=== PATIENT | male | born 1935 | race Caucasian/White ===

== ENCOUNTER 2016-12-01 11:00 | Inpatient (IN) | payer OTHER ==
--- NOTE | 2016-12-01 11:30 | EDPHY ---
H & P Stated Complaint: diarrhea, +n/-v and BLE weakness w/ lightheadedness x ~2 days Time Seen by Provider: 12/01/16 11:18 - Personal History Current Tetanus/Diphtheria Vaccine: Unsure Current Tetanus Diphtheria and Acellular Pertussis (TDAP): Unsure - Medical/Surgical History Hx Asthma: No Hx Chronic Respiratory Disease: No Hx Diabetes: No Hx Cardiac Disease: No Hx Renal Disease: No Hx Cirrhosis: No Hx Alcoholism: No Hx HIV/AIDS: No Hx Splenectomy or Spleen Trauma: No Other PMH: PSH: liver transplant; prostitectomy; T&A; Appy; bhavesh; abd sx due to sepsis;. PMH: htn - Social History Smoking Status: Never smoked Constitutional: Initial Vital Signs Temperature (C) 37.2 C 12/01/16 11:14 Heart Rate 64 12/01/16 11:14 Respiratory Rate 16 12/01/16 11:14 Blood Pressure 101/64 12/01/16 11:14 O2 Sat (%) 98 12/01/16 11:14 O2 Delivery Mode Room Air Allergies/Adverse Reactions: No Known Allergies Allergy (Unverified 12/01/16 11:11) Home Medications: Medication Instructions Recorded Amlodipine Besylate 12/01/16 Eliquis 12/01/16 Lasix 12/01/16 Levothyroxine 12/01/16 Lisinopril 12/01/16 Meloxicam 12/01/16 Metoprolol Succinate 12/01/16 Propafenone HCl 12/01/16 Tacrolimus 12/01/16 hydrALAZINE 12/01/16 Medical Decision Making ED Course/Re-evaluation: CHIEF COMPLAINT: Diarrhea, weakness HISTORY OF PRESENT ILLNESS: The patient is an anticoagulated 81 y/o male arriving with his family member complaining of diarrhea and weakness since Thursday, 2 days ago. He has a history of atrial fibrillation and liver transplant. He says he has been a "little bit wobbly walking since falling last fall" and has to "use the live a lot to walk." He saw his PCP on Thursday and she attributed his weakness to dehydration and also referred him to a back padder. He continues to feel lightheaded and weak and began having diarrhea and nausea 2 days ago. He notes his stools are "quite dark" but not bloody and denies aspirin or ibuprofen use. He was hypotensive in the 100s systolic for EMS. No recent antibiotics. REVIEW OF SYSTEMS: A 10 point review of systems was performed and is negative with the exception of the elements mentioned in the history of present illness. PHYSICAL EXAM: HR, BP 80/39, O2 Sat, RR. Temp noted General Appearance: Alert, well hydrated, appropriate, pale and ill-appearing. Head: Atraumatic without scalp tenderness or obvious injury Eyes: Pupils equal, round, reactive to light and accommodation, EOMI, no trauma , no injection. Ears: Clear bilaterally, no perforation, normal landmarks Nose: Atraumatic, no rhinorrhea, clear. Throat: There is no erythema or exudates, no lesions, normal tonsils, mucus membranes moist. Neck: Supple, 2+ carotid upstroke, nontender, no lymphadenopathy. Respiratory: No retractions, no distress, no wheezes, and no accessory muscle use. Lungs are clear to auscultation bilaterally. Cardiovascular: Regular rate and rhythm, no murmurs, rubs, or gallops. Bilateral carotid, radial, dorsalis pedis, and posterior tibial pulses intact. Good capillary refill all extremities. Gastrointestinal: Abdomen is soft, nontender, non-distended, no masses, no rebound, no guarding, no peritoneal signs. Several abdominal scars from prior surgeries. Musculoskeletal: Normal active ROM of all extremities, atraumatic. Neurological: Alert, appropriate, and interactive. The patient has normal DTRs and non-focal cranial nerves, motor, sensory, and cerebellar exam. Normal straight-leg raise. Skin: No rashes, good turgor, no nodules on palpation. Past medical history: Sepsis, atrial fibrillation on Eliquis, hypertension Past surgical history: Liver transplant 13 years ago, abdominal surgeries related to sepsis, appendectomy, cholecystectomy Family history: Noncontributory Social history: Works out on treadmill and weight machine daily. Family member at bedside. PCP: Dr. Alecia Lanier DIFFERENTIAL DIAGNOSIS: The differential diagnosis for the patient's upper GI bleeding included but was not limited to ulcer disease, gastritis, Chelita- Robin tear, and esophageal varices. MEDICAL DECISION MAKING: This is an 81 y/o male who presents hypotensive and pale complaining of progressive weakness over the last week and difficulty walking for several months with dark stool onset 2 days ago. He has a history of liver transplant, several abdominal surgeries, and is anticoagulated on Eliquis for atrial fibrillation. His strength is 5/5 in his lower extremities and he is neurovascularly intact. He is hypotensive in the 80s systolic on assessment, but alert and appropriate. His symptoms are consistent with an upper GI bleed complicated by his anticoagulation. Plan for IV, labs, type&cross for likely transfusion. Hct 25, creatinine 2, BUN 80. 1g IV TXA and 80mg IV Protonix administered with 2 units PRBCs ordered. Patient will be admitted to Dr. Agudelo, hospitalist, for anemia secondary to upper GI bleed. 1157: Consulted with Dr. Hassan GI. He will follow patient during admission. - Data Points Laboratory Results: Laboratory Results 12/01/16 11:20 12/01/16 11:20 12/01/16 12/01/16 11:45 11:20 WBC 7.82 10^3/uL (3.80-9.50) RBC 2.72 L 10^6/uL (4.40-6.38) Hgb 8.3 L g/dL (13.7-17.5) Hct 25.0 L % (40.0-51.0) MCV 91.9 fL (81.5-99.8) MCH 30.5 pg (27.9-34.1) MCHC 33.2 g/dL (32.4-36.7) RDW 13.2 % (11.5-15.2) Plt Count 210 10^3/uL (150-400) MPV 10.4 fL (8.7-11.7) Neut % (Auto) 62.8 % (39.3-74.2) Lymph % (Auto) 24.2 % (15.0-45.0) Dolores % (Auto) 8.8 % (4.5-13.0) Eos % (Auto) 3.2 % (0.6-7.6) Baso % (Auto) 0.5 % (0.3-1.7) Nucleat RBC Rel Count 0.0 % (0.0-0.2) Absolute Neuts (auto) 4.91 10^3/uL (1.70-6.50) Absolute Lymphs (auto) 1.89 10^3/uL (1.00-3.00) Absolute Monos (auto) 0.69 10^3/uL (0.30-0.80) Absolute Eos (auto) 0.25 10^3/uL (0.03-0.40) Absolute Basos (auto) 0.04 10^3/uL (0.02-0.10) Absolute Nucleated RBC 0.00 10^3/uL (0-0.01) Immature Gran % 0.5 % (0.0-1.1) Immature Gran # 0.04 10^3/uL (0.00-0.10) Sodium 139 mEq/L (134-144) Potassium 5.2 mEq/L (3.5-5.2) Chloride 110 mEq/L (97-110) Carbon Dioxide 22 mEq/l (22-31) Anion Gap 7 mEq/L (8-16) BUN 82 H mg/dL (7-23) Creatinine 2.0 H mg/dL (0.7-1.3) Estimated GFR 32 Glucose 141 H mg/dL (70-100) Calcium 8.7 mg/dL (8.5-10.4) Total Bilirubin 0.5 mg/dL (0.1-1.4) AST 24 IU/L (17-59) ALT 34 IU/L (21-72) Alkaline Phosphatase 147 H IU/L (38-126) Total Protein 5.1 L g/dL (6.3-8.2) Albumin 2.5 L g/dL (3.5-5.0) Patient ABO/Rh Pending Antibody Screen Pending Crossmatch IS Only See Detail Departure - Departure Disposition: [facility] Inpatient Acute Clinical Impression: Anemia due to GI blood loss, Upper GI bleed, Weakness Condition: Fair Referrals: Patient,NotPresent [Unknown] - As per Instructions Report Scribed for: Nura Castro Report Scribed by: Nalini Levin Date of Report: 12/01/16 Time of Report: 11:32
[2016-12-01 11:37] LABS: % IMMATURE GRANULYOCYTES 0.5 % (0.0-1.1); ABSOLUTE IMMATURE GRANULOCYTES 0.04 10^3/uL (0.00-0.10); ADD DIFF? NO; ADD MORPH? NO; ADD SCAN? NO; ATYPICAL LYMPHOCYTE FLAG 20 (0-99); FRAGMENT RBC FLAG 0 (0-99); HEMOGLOBIN 8.3 g/dL (13.7-17.5); LEFT SHIFT FLG 0 (0-99); LIPEMIA HEMOLYSIS FLAG 80 (0-99); MEAN CELL HEMOGLOBIN 30.5 pg (27.9-34.1); MEAN CELL HEMOGLOBIN CONCENTR. 33.2 g/dL (32.4-36.7); MEAN CELL VOLUME 91.9 fL (81.5-99.8); MEAN PLATELET VOLUME 10.4 fL (8.7-11.7); PLATELET CLUMPS FLAG 10 (0-99); PLATELET COUNT 210 10^3/uL (150-400); RED BLOOD CELL COUNT 2.72 10^6/uL (4.40-6.38); RED CELL DISTRIBUTION WIDTH 13.2 % (11.5-15.2)
[2016-12-01] MEDS ORDERED: TRANEXAMIC ACID 1,000 MG in NS 100 ML IV ONE (11:41)
[2016-12-01] MEDS ORDERED: TRANEXAMIC ACID 1,000 MG in NS 500 ML IV ONE (11:41)
[2016-12-01] MEDS ORDERED: PANTOPRAZOLE SODIUM 80 MG in NS 100 ML IV ONE (11:45)
[2016-12-01 11:46] LABS: ALANINE AMINOTRANSFERASE 34 IU/L (21-72); ALBUMIN 2.5 g/dL (3.5-5.0); ANION GAP 7 mEq/L (8-16); ASPARTATE AMINOTRANSFERASE 24 IU/L (17-59); BILIRUBIN,TOTAL 0.5 mg/dL (0.1-1.4); CALCIUM 8.7 mg/dL (8.5-10.4); CARBON DIOXIDE 22 mEq/l (22-31); CHLORIDE 110 mEq/L (97-110); GLOMERULAR FILTRATION RATE 32; GLUCOSE 141 mg/dL (70-100); POTASSIUM 5.2 mEq/L (3.5-5.2); SODIUM 139 mEq/L (134-144); TOTAL PROTEIN 5.1 g/dL (6.3-8.2)
--- NOTE | 2016-12-01 12:10 | CPEKG ---
Heart Rate: 57 RR Interval: 1053 P-R Interval: 236 QRSD Interval: 84 QT Interval: 444 QTC Interval: 433 P Hardy: 73 QRS Hardy: 45 T Wave Hardy: -85 EKG Severity - ABNORMAL ECG - EKG Impression: SINUS RHYTHM EKG Impression: FIRST DEGREE AV BLOCK EKG Impression: LVH WITH SECONDARY REPOLARIZATION ABNORMALITY Electronically Signed By: Nura Castro 01-Dec-2016 14:31:23
[2016-12-01] MEDS ORDERED: ONDANSETRON 4 MG/2 ML VIAL ONE ×2 (13:05→17:02)
[2016-12-01 13:31] LABS: ALBUMIN 2.5 g/dL (3.5-5.0); BILIRUBIN,TOTAL 0.4 mg/dL (0.1-1.4); BILIRUBIN-CONJUGATED 0.3 mg/dL (0.0-0.5); BILIRUBIN-UNCONJUGATED 0.1 mg/dL (0.0-1.1); TOTAL PROTEIN 5.2 g/dL (6.3-8.2)
[2016-12-01 13:33] LABS: APTT 28.4 SEC (23.0-38.0); INR 1.36 (0.83-1.16); PROTIME(PATIENT) 16.8 SEC (12.0-15.0)
[2016-12-01] MEDS ORDERED: ONDANSETRON 4 MG/2 ML VIAL IVP PRN ×2 (13:59→15:22)
[2016-12-01] MEDS ORDERED: oxyCODONE IR 5 MG TAB PO PRN (15:22)
[2016-12-01] MEDS ORDERED: ONDANSETRON DISINTEGRATING 4 MG TAB PO PRN (15:22)
[2016-12-01] MEDS ORDERED: ACETAMINOPHEN 325 MG TAB PO PRN (15:22)
[2016-12-01] MEDS ORDERED: PROMETHAZINE HCL 25 MG/ML INJ IVP PRN (15:22)
[2016-12-01] MEDS ORDERED: PROPOFOL/EMULSION 500 MG/50 ML BOTTLE IV ONE (16:06)
[2016-12-01] MEDS ORDERED: DEXAMETHASONE 4 MG/ML VIAL ONE (17:17)
--- NOTE | 2016-12-01 18:55 | CPEKG ---
Heart Rate: 103 RR Interval: 583 QRSD Interval: 84 QT Interval: 360 QTC Interval: 471 QRS Leon: 29 T Wave Leon: 252 EKG Severity - ABNORMAL ECG - EKG Impression: ATRIAL FIBRILLATION EKG Impression: LVH WITH SECONDARY REPOLARIZATION ABNORMALITY EKG Impression: ST DEPRESSION, CONSIDER ISCHEMIA, ANT-LAT LDS Electronically Signed By: Edgar Sommer 02-Dec-2016 13:11:04
[2016-12-01 18:58] LABS: HEMATOCRIT 25.1 % (40.0-51.0); HEMOGLOBIN 8.9 g/dL (13.7-17.5)
--- NOTE | 2016-12-01 19:03 | GHP ---
[f rep st] HISTORY AND PHYSICAL DATE OF ADMISSION: 12/01/2016 DATE OF EVALUATION: 12/01/2016 CHIEF COMPLAINT: Falling at home. HISTORY: This is an 81-year-old man with a past medical history that includes PSC, status post liver transplant 13 years ago, as well as prostate cancer, who recently moved to [place] about in the and notes that he has been having issues with increasing falls at home. He notes that he jus t has felt unsteady. He has denied any syncope or near-syncope. He attributes this to weakness that he has had ever since a fall he had in the fall. He was seen by his primary care physician for thes e symptoms, and she felt he was likely dehydrated. He otherwise denies any other issues. He denies any dark or tarry stools. He denies any hematemesis. He denies any blood in his urine. PAST MEDICAL HISTORY: Includes: 1. PSC. 2. Heart murmur that he was told he needs surgery for, but has not had further workup on. 3. Sepsis. 4. Prostate cancer. 5. Atrial fibrillation. 6. Hypertension. 7. Hypothyroidism. PAST SURGICAL HISTORY: Includes: 1. Liver transplant. 2. Prostatectomy. 3. Appendectomy. 4. Cholecystectomy. FAMILY HISTORY: This was reviewed and is not contributory. His parents are both . SOCIAL HISTORY: Patient states he works out every day for at least 30-45 minutes. He recently moved here from [place] to be near his son, who is a [employer] professor. He is a never smoker, never drinker, never drug user. He is a retired business intelligence consultant. REVIEW OF SYSTEMS: A 10-point review of systems obtained and negative, except as per HPI. CODE STATUS: This was reviewed with the patient. He is quite clear that he would like to be a Do No t Resuscitate. HOME MEDICATIONS: Include: 1. Propafenone. 2. Fludrocortisone. 3. Cyanocobalamin. 4. Metoprolol. 5. Meloxicam. 6. Lisinopril. 7. Levothyroxine. 8. Hydralazine. 9. Lasix. 10. Tacrolimus. 11. Amlodipine. 12. Eliquis. ALLERGIES: No known drug allergies. PHYSICAL EXAMINATION: VITAL SIGNS: BP 93/51, heart rate 55, respiratory rate 17, O2 sats 97% on eliot m air, temperature is 36.4. GENERAL APPEARANCE: This is a well-developed/well-nourished elderly man . He is awake and alert. He is in no acute distress. EYES: Anicteric. HENT: Oropharynx clear. CARDIOVASCULAR: Distant heart sounds, difficult to ascertain whether or not a murmur is present but sounds as if he has both a gallop and likely an underlying systolic murmur. PULMONARY: CTA bilatera lly, normal breathing. ABDOMEN: Soft, nontender, nondistended. EXTREMITIES: No clubbing, cyanosis , or edema. SKIN: Warm, dry, well perfused. NEURO/PSYCH: Oriented and appropriate. CLINICAL DATA: Labs reviewed, significant for white blood cell count of 7.8, hematocrit of 25, plate lets of 210. INR is 1.3. Chemistries notable for a BUN of 82, creatinine of 2.0 (was 1.7 a week ago ). LFTs remarkable for an alk phos of 147, total protein 5.2, and albumin 2.5. EKG reviewed and interpreted independently by me shows sinus rhythm, 1st-degree AV block. There is l eft ventricular hypertrophy with secondary repolarization abnormality. ASSESSMENT/PLAN: This is an 81-year-old man complaining of multiple falls at home in the setting of anemia, acute kidney injury versus chronic kidney disease, and hypotension. Problems: 1. Anemia. This is of uncertain chronicity as we do not have a baseline H and H in the system. Pat lamberto denies any signs or symptoms of active bleeding. Will obtain a Hemoccult, transfuse packed red blood cells, and trend his H and H. The patient is fairly reluctant to undergo any invasive interven tions including endoscopy, but would consider it if it was felt to be necessary. Again, will trend a nd make this determination in the coming 24 hours. We will hold his Eliquis for now in case this cruz s represent an acute bleed. 2. Hypotension, in the setting of being on multiple blood pressure medications at home, including hi gh doses of hydralazine at 100 mg t.i.d., amlodipine 10 daily, metoprolol 50 b.i.d., as well as Rythm ol 225 b.i.d. He is likewise bradycardic. Suspect this is likely contributing to his recurrent fall s. Will hold his blood pressure medications for now given that his systolic blood pressure has been in the 80s to low 100s since arrival. Will also hold both propafenone and metoprolol, given his hear t rate being in the 50s. He likely will need one or both of these medications resumed at a lower dos e, but this remains to be seen at this time. 3. Acute kidney injury versus chronic kidney disease. Unknown baseline creatinine, but currently in creased to 2.0, which was 1.7 several days ago when he was thought to be hypovolemic. Again, will ho ld his blood pressure medications, as I suspect this is acute kidney injury that is likely hemodynami brianna mediated. He is also on lisinopril and Lasix as an outpatient, which could be contributing to his worsening renal function. These also will both be held. He will be volume resuscitated. 4. Atrial fibrillation as per above. EKG showing sinus rhythm at this time. Again, rate in the 50s . 5. Heart murmur. Patient states that he has known he has a heart murmur and was previously told elizabeth t he needs surgery for this. His heart sounds are quite distant and difficult to auscultate, and we will obtain an echocardiogram for further evaluation; though, again, patient does seem reluctant to u ndergo anything invasive. 6. History of liver transplant. This is secondary to primary sclerosing cholangitis. He is chronic ally immunosuppressed secondary to same. We will continue his immune suppressants and monitor. It s ounds as if he has done quite well for the last 13 years. 7. Code status is DNR. 8. Disposition: Inpatient status. Patient has multiple active presenting issues, which will necess itate greater than 48-hour stay and complex medical decision making. Patient is new to my care. ER record reviewed, and care plan reviewed with the ER physician. Will a ttempt to obtain records from patient's prior physicians in [place]. /[id number]/MODL
[2016-12-01 20:07] LABS: % SATURATION 79 % (20-55); TOTAL IRON BINDING CAPACITY 241 ug/dL (260-490)
[2016-12-01 20:35] LABS: FERRITIN - BCH 19.9 ng/mL (17.9-464.0)
[2016-12-01] MEDS ORDERED: traZODone 50 MG TAB PO PRN (20:57)
[2016-12-01] MEDS ORDERED: METOPROLOL TARTRATE 50 MG TAB PO SCH (21:00)
[2016-12-01] MEDS ORDERED: PROPAFENONE HCL SR 225 MG CAP PO SCH (21:00)
--- NOTE | 2016-12-01 21:39 | GCON ---
[f rep st] CONSULTATION REFERRING PHYSICIAN: Nura Castro MD CHIEF COMPLAINT: An 81-year-old gentleman with melenic stool and anemia. HISTORY OF PRESENT ILLNESS: This 81-year-old gentleman has a history of anticoagulation for atrial fibrillation. He is status post liver transplant for PSC about 13 years ago. Underwent liver transplant at [facility]. He received a living related donor liver from his son. He has recently moved to [place] from [place]. Previously to that he had lived in [place]. He had been feeling unwell over the weekend, had been noticing melenic stool, was a little lightheaded and weak. Had some nausea about 2 days ago with some episodes of diarrhea. Had several stools that were quite dark stool with some blood. He has no NSAID use, but he does take Eliquis for chronic atrial fibrillation. As mentioned, has a prior history of liver transplant about 13 years ago. This was for PSC. He has no history of inflammatory bowel disease. The patient's blood pressure was 107/60 in the emergency department with a heart rate of 61. His hematocrit was 25 with a BUN of 82 with a creatinine of 2.0. Asked to see patient for further evaluation. He has had previous colonoscopy. He has had a reported history of colon polyps. He cannot recall when his last colonoscopy was. He has also had previous upper endoscopy in the past, complications of this PSC with a history of reported esophageal varices. PAST MEDICAL HISTORY: Remarkable for liver transplant for PSC, prostatectomy, tonsillectomy, adenoidectomy, appendectomy, cholecystectomy, hypertension, atrial fibrillation. ALLERGIES: No known drug allergies. MEDICATIONS: Prior to admission include tacrolimus, meloxicam, lisinopril, levothyroxine, Lasix, hydralazine, Eliquis and propafenone. FAMILY HISTORY: Negative as it pertains to chief complaint. SOCIAL HISTORY: He is . Recently moved to [place] to be close to his son. He lives in [facility]. His has of Alzheimer this past year. REVIEW OF SYSTEMS: Negative for 10 systems in HPI. PHYSICAL EXAM: VITAL SIGNS: 107/60, heart rate 61, respiratory rate 18, 98% sat. GENERAL: Pleasant gentleman, no acute distress. HEENT: Normocephalic, atraumatic. EOMI. NECK: Supple. LUNGS: Clear. CARDIAC EXAM: Normal S1, S2 without murmur. ABDOMEN: Benign. No hepatosplenomegaly. Scar on abdomen. EXTREMITIES: Unremarkable without clubbing, cyanosis, or edema. SKIN: Warm and dry without rashes. NEURO: Nonfocal. PSYCH: Alert and oriented x3 with normal affect. LABORATORY DATA: Serum sodium 139, potassium 5.2, BUN of 82, creatinine 2.0, blood sugar 141, total bilirubin 0.5, AST 24, ALT of 34, alkaline phosphatase 147, hemoglobin 8.3 IMPRESSION: An 81-year-old gentleman reportedly on meloxicam. He is on anticoagulation with Eliquis. Patient with acute gastrointestinal bleed. His last dose of Eliquis was last evening. He reports he was not able take his medications this morning. Currently, he is hemodynamically stable, as he has had a significant drop in his hematocrit. Rule out NSAID induced ulceration in the setting of anti-coagulation. RECOMMENDATIONS: 1. Admit to the hospital on telemetry. 2. Serial H and H, transfuse 2 units of packed red blood cells, proceed with urgent endoscopy. Will follow with you. /[id number]/MODL MTDD
[2016-12-01] MEDS: TACROLIMUS 1 MG CAP PO SCH (21:43)
[2016-12-01 22:13] LABS: COLOR YELLOW; LEUKOCYTE ESTERASE,URINE NEGATIVE (NEGATIVE); NITRITE,URINE NEGATIVE (NEGATIVE)
[2016-12-01 22:18] LABS: HEMATOCRIT 23.1 % (40.0-51.0); HEMOGLOBIN 8.1 g/dL (13.7-17.5)
[2016-12-01] MEDS ORDERED: METOPROLOL TARTRATE 25 MG TAB PO ONE (23:43)
[2016-12-02] MEDS ORDERED: NS 500 ML IV ONE ×2 (01:14→03:00)
[2016-12-02] MEDS: NS 1,000 ML IV SCH ×3 (01:36→13:53)
--- NOTE | 2016-12-02 03:20 | GPN ---
[f rep st] PROCEDURE NOTE PROCEDURE: Esophagogastroduodenoscopy with biopsy and controlled hemorrhage. PREOPERATIVE DIAGNOSIS: Gastrointestinal bleed. POSTOPERATIVE DIAGNOSIS: Large deep duodenal ulcer with pigmentation and overlying clot status post injection with epinephrine. Also status post biopsy of antrum for Helicobacter pylori. INDICATION: An 81-year-old gentleman with history of significant pulmonary disease. Patient with pr ior history of liver transplant about 13 years ago for PSC. Patient received a living related donor transplant from his son. He has a history of atrial fib and has been started on anticoagulation rece ntly. He also takes meloxicam on a regular basis. He presented to the emergency department with fee ling lightheaded, dizzy, drop in his hematocrit with episodes of melenic stool. Presents now for urg ent endoscopy. PHYSICAL EXAM: VITAL SIGNS: Stable. LUNGS: Clear. CARDIAC: Normal S1, S2 without murmur. PERMIT: Procedure was explained to the patient. Risks and benefits of the procedure were outlined t o the patient. Informed consent was obtained. PREOPERATIVE MEDICATIONS: Per Anesthesia. FINDINGS OF PROCEDURE: Patient placed in left lateral decubitus position. The GIF-180 video scope w as passed through the oropharynx under visualization. The proximal esophagus was marked with mild er osive esophagitis at the GE junction at 40 cm. Endoscope was passed through the stomach. There was no blood within the stomach. Antrum, body appeared normal. Endoscope was passed to the pylorus and the first and second portion of the duodenum. Second portion of duodenum was normal. The first port ion of duodenum was an enlarged, crater duodenal ulcer about 1 cm to 1.5 cm in size. Overlying clot and pigmentation. No active bleeding. The clot was vigorously washed several times and was not disl odged. There was some slight narrowing at the duodenum between the first and second portion of the d uodenum. Ulcer was treated with epinephrine 1:10,000. A total of 5 cc. There was no active bleedin g at that beginning or end of procedure. The scope was brought back in the stomach. Retroflex view of the stomach revealed a normal fundus and cardia. Endoscope was un-retroflexed. Biopsies were agatha en of the antrum and body for H pylori. Endoscope was then withdrawn. IMPRESSION: 1. Mild erosive esophagitis. 2. Status post biopsy of the antrum body for Helicobacter pylori. 3. Deep cratered ulcer at the duodenum with pigmentation of overlying clot. Patient is a high risk for recurrent bleeding. RECOMMENDATIONS: 1. Observe in the hospital overnight. Continue on IV Protonix drip 8 mg/hour. 2. Serial hemoglobin and hematocrit . If any acute signs of GI bleeding may consider repeat endosco py or Interventional Radiology intervention for embolization. Will follow with you. 3. Will discontinue meloxicam. /[id number]/MODL
[2016-12-02 03:43] LABS: HEMATOCRIT 19.1 % (40.0-51.0)
[2016-12-02 03:46] LABS: HEMOGLOBIN 6.7 g/dL (13.7-17.5)
[2016-12-02 04:38] LABS: ALKALINE PHOSPHATASE 62 IU/L (38-126)
[2016-12-02] MEDS: TACROLIMUS 1 MG CAP PO SCH ×2 (05:55→17:40)
[2016-12-02] MEDS: LEVOTHYROXINE 88 MCG TAB PO SCH (05:55)
[2016-12-02 08:23] LABS: % IMMATURE GRANULYOCYTES 0.6 % (0.0-1.1); ABSOLUTE IMMATURE GRANULOCYTES 0.06 10^3/uL (0.00-0.10); ADD DIFF? NO; ADD MORPH? NO; ADD SCAN? NO; ATYPICAL LYMPHOCYTE FLAG 30 (0-99); FRAGMENT RBC FLAG 0 (0-99); HEMATOCRIT 25.3 % (40.0-51.0); HEMOGLOBIN 8.7 g/dL (13.7-17.5); LEFT SHIFT FLG 90 (0-99); LIPEMIA HEMOLYSIS FLAG 90 (0-99); MEAN CELL HEMOGLOBIN 31.1 pg (27.9-34.1); MEAN CELL HEMOGLOBIN CONCENTR. 34.4 g/dL (32.4-36.7); MEAN CELL VOLUME 90.4 fL (81.5-99.8); MEAN PLATELET VOLUME 10.5 fL (8.7-11.7); PLATELET CLUMPS FLAG 30 (0-99); PLATELET COUNT 126 10^3/uL (150-400); RED CELL DISTRIBUTION WIDTH 14.8 % (11.5-15.2)
[2016-12-02 09:04] LABS: ANION GAP 8 mEq/L (8-16); CALCIUM 7.6 mg/dL (8.5-10.4); CARBON DIOXIDE 16 mEq/l (22-31); CHLORIDE 121 mEq/L (97-110); CREATININE 1.3 mg/dL (0.7-1.3); GLOMERULAR FILTRATION RATE 53; GLUCOSE 112 mg/dL (70-100); SODIUM 145 mEq/L (134-144)
--- NOTE | 2016-12-02 09:29 | ECHO ---
[id number] + + [address] : : [place] [address] : : [phone] + + Adult Echocardiographic Report + + :Name: ADELAIDE RIBEIROBlake Date: 12/02/2016 07:55 AM : : Hospital Admission Number: [id number] Location: 245: :: 1935 Gender: Male Height: 69 in : :Age: 81 yrs Race: WH Weight: 151 lb : :Reason For Study: Eval LV Fx : : BSA: 1.8 meters2 : :History: New onset A-fib, Murmur, Anemia : + + MMode/2D Measurements & Calculations IVSd: 1.5 cm LVIDd: 4.1 cm FS: 34.9 % Ao root diam: 3.8 cm LVPWd: 1.4 cm LVIDs: 2.6 cm EDV(Teich): 72.9 ml ACS: 0.77 cm ESV(Teich): 25.7 ml EF(Teich): 64.7 % LVOT diam: 2.3 cm LVOT area: 4.2 cm2 Normal Measurement Values: + + :LVIDd (3.5-5.7cm) IVSd (0.6-1.1cm) LVPWd (0.6-1.1cm) Aortic Root (2.0-3.7cm)Left Atrium (1.5-4.0cm): :LV Vol(d) (76-115ml) LV Vol(s) (29-48ml) Ejec Fraction (50-65%)PV Lewis (0.6- 1.2m/s) TV Lewis (0.4-1.0m/s) : :MV E Lewis (0.8-1.0m/s)MV A Lewis (0.3-1.0m/s)LVOT Lewis (0.7-1.2m/s) Asc Ao Lewis ( 0.9-1.8m/s) : + + Doppler Measurements & Calculations MV E max lewis: Ao V2 max: LV V1 mean PG: SV(LVOT): 109.1 cm/sec 378.6 cm/sec 2.8 mmHg 98.1 ml Ao max P.3 mmHgLV V1 mean: Ao mean P.3 cm/sec 54.6 mmHg LV V1 VTI: 23.3 cm Ao V2 mean: 333.9 cm/sec Ao V2 VTI: 107.0 cm EZIO(I,D): 0.92 cm2 PA V2 max: TR max lewis: 109.9 cm/sec 319.7 cm/sec PA max P.8 mmHg TR max P.9 mmHg RAP systole: 5.0 mmHg RVSP(TR): 45.9 mmHg Left Ventricle The left ventricle is normal in size. There is moderate concentric left ventricular hypertrophy. The left ventricular ejection fraction is normal. Ejection Fraction = 65%. The left ventricle is hyperdynamic. The left ventricular wall motion is normal. Right Ventricle The right ventricle is normal in size and function. Atria The Left Atrial Volume is 49 ml/m2. The left atrium is severely dilated. The right atrium is mild to moderately dilated. Mitral Valve The mitral valve is normal. There is no evidence of mitral valve prolapse. There is no mitral valve stenosis. There is trace to mild mitral regurgitation. Tricuspid Valve There is moderate tricuspid regurgitation. Right ventricular systolic pressure is 47mmHg. There is Doppler evidence for moderate pulmonary hypertension. Aortic Valve Severe Aortic Valve Calcification. The Ao V2 max is 3.8 m/sec with a Ao mean PG of 54 mmHg. Severe valvular aortic stenosis. Pulmonic Valve The pulmonic valve is normal in structure and function. Great Vessels The aortic root is normal size. Pericardium/Pleural There is no pericardial effusion. Conclusion A complete two-dimensional transthoracic echocardiogram was performed (2D, M-mode, Doppler and color flow Doppler). There is moderate concentric left ventricular hypertrophy. The left ventricular ejection fraction is normal. Ejection Fraction = 65%. The left ventricle is hyperdynamic. The left ventricular wall motion is normal. The right ventricle is normal in size and function. The Left Atrial Volume is 49 ml/m2. The left atrium is severely dilated. The right atrium is mild to moderately dilated. The mitral valve is normal. There is trace to mild mitral regurgitation. There is moderate tricuspid regurgitation. Right ventricular systolic pressure is 47mmHg. There is Doppler evidence for moderate pulmonary hypertension. Severe Aortic Valve Calcification The Ao V2 max is 3.8 m/sec with a Ao mean PG of 54 mmHg. This is an average with the patient in atrial fibrillation. Severe valvular aortic stenosis. There is no pericardial effusion. Final Reading Physician: Leighann Augustin signed on 12/02/2016 09:28 AM Ordering Physician: Herminia Agudelo Performed By: Juan Diego Wasserman, JESSICACS
[2016-12-02] MEDS: CYANO/VITAMIN B12 1000 MCG TAB PO SCH (10:06)
[2016-12-02] MEDS: FLUDROCORTISONE ACETATE 0.1 MG TAB PO SCH (10:06)
--- NOTE | 2016-12-02 13:34 | HOSPPROG ---
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 H/h stable so far overnight. Patient had been on AC prior to admission. Will continue PPI, continue to trend h/h. GI following, may need repeat scope if evidence of rebleeding # acute blood loss anemia: in the setting of above, s/p transfusion of 3 units and has been stable so far overnight (one draw that was low was likely lab error ) # a fib: has a chads vasc of 3 and was recently started on eliquis in [place] for decreasing his stroke risk, reviewed with patient and his son. Now with a potentially life threatening bleed as well as hx of falling, given that his annual stroke risk is 4%, risk likely outweighs benefit and will change patient back to asa for stroke ppx. He will f/u with his pcp and cardiology to be sure # hx of liver tx: continue tacrolimus, has been doing well # moderate pulm htn/mod TR: without other significant valvular disease noted on echo, patient thought he was told in the past that he had valvular disease warranting surgery, seems unlikely based on echo report. # dispo: IP status, high risk necessitating ongoing monitoring of h/h and possible repeat egd > 35 min spent in direct care of this patient, more than half in face to face counseling of patient and his son present at bedside. Subjective: no significant overnight events, patient feeling well and eager to go home, very hungry, did have one dark stool Objective: Vital Signs Temp Pulse Resp BP Pulse Ox 36.5 C 92 20 94/55 L 96 12/02/16 12:11 12/02/16 12:11 12/02/16 12:11 12/02/16 12:11 12/02/16 12:11 Laboratory Results 12/02/16 08:10 12/02/16 08:00 12/01/16 12/02/16 12/03/16 05:59 05:59 05:59 Intake Total 7640 Output Total 1050 Balance 6590 PT 16.8 SEC (12.0-15.0) H 12/01/16 11:20 INR 1.36 (0.83-1.16) H 12/01/16 11:20 awake alert nad anicteric op clear rrr no mrg cta b soft nt nd no cce warm dry well perfused ICD10 Worksheet Patient Problems: Problems Problem Status Diagnosed Anemia due to GI blood loss Acute Upper GI bleed Acute Weakness Acute
[2016-12-02] MEDS: PANTOPRAZOLE SODIUM 40 MG TAB PO SCH ×2 (13:52→20:14)
--- NOTE | 2016-12-02 14:39 | SOAPPROG ---
SOAP Progress Note Assessment/Plan: Assessment: DU, received another unit of PRBC's last night. No signs or rebleeding today. Tolerated PO. Plan: 1. Advance diet as tolerated 2. Continue on IV PPI until am then if stable switch to PO pantoprazole 40 mg BID 3. Continue to monitor H and H serially, q 12 hours 12/02/16 14:36 Subjective: CC: GI Bleed S/p EGD with injection of epi. Large DU with clot. Hemodynamically stable without signs of rebleeding. Objective: Vital Signs Temp Pulse Resp BP Pulse Ox 36.5 C 92 20 94/55 L 96 12/02/16 12:11 12/02/16 12:11 12/02/16 12:11 12/02/16 12:11 12/02/16 12:11 Laboratory Results 12/02/16 08:10 12/02/16 08:00 12/01/16 12/02/16 12/03/16 05:59 05:59 05:59 Intake Total 7640 Output Total 1050 Balance 6590 PT 16.8 SEC (12.0-15.0) H 12/01/16 11:20 INR 1.36 (0.83-1.16) H 12/01/16 11:20 Generic Name Dose Route Start Last Admin Trade Name Freq PRN Reason Stop Dose Admin Acetaminophen 650 mg 12/01/16 15:22 Tylenol PO 05/30/17 15:21 Q4HRS PRN Pain, Mild/Fever, Can Take PO Fludrocortisone Acetate 0.1 mg 12/02/16 09:00 12/02/16 10:06 Florinef PO 05/31/17 08:59 0.1 mg DAILY [place] Administration Sodium Chloride 1,000 mls @ 125 mls/hr 12/01/16 15:30 12/02/16 13:53 Ns IV 05/30/17 15:29 1,000 mls CONT [place] Administration Levothyroxine Sodium 88 mcg 12/02/16 06:00 12/02/16 05:55 Synthroid PO 05/31/17 05:59 88 mcg DAILY06 [place] Administration Ondansetron HCl 4 mg 12/01/16 13:59 12/01/16 13:30 Zofran IVP 05/30/17 13:58 4 mg Q4HRS PRN Administration Nausea/Vomiting, Can't Take PO Ondansetron HCl 4 mg 12/01/16 15:22 Zofran Odt PO 05/30/17 15:21 Q4HRS PRN Nausea/Vomiting, Use 1st Oxycodone HCl 5 - 10 mg 12/01/16 15:22 Oxycodone Ir PO 12/11/16 15:21 Q3HRS PRN Pain, Severe Able to Take PO Pantoprazole Sodium 40 mg 12/02/16 13:30 12/02/16 13:52 Protonix PO 05/31/17 13:29 40 mg BID [place] Administration Promethazine HCl 6.25 - 12.5 mg 12/01/16 15:22 Phenergan Injection IVP 05/30/17 15:21 Q6HRS PRN Nausea/Vomiting, Use 2nd Tacrolimus 1 mg 12/01/16 17:30 12/02/16 05:55 Prograf PO 05/30/17 17:29 1 mg Q12H [place] Administration Trazodone HCl 50 mg 12/01/16 20:57 12/01/16 21:43 Trazodone PO 05/30/17 20:56 50 mg PRN PRN Administration insomnia Vitamin B Complex 1,000 mcg 12/02/16 09:00 12/02/16 10:06 Vitamin B12 PO 05/31/17 08:59 1,000 mcg DAILY [facility] Administration Discontinued Medications Generic Name Dose Route Start Last Admin Trade Name Freq PRN Reason Stop Dose Admin Amlodipine Besylate 10 mg 12/02/16 09:00 Norvasc PO 05/31/17 08:59 DAILY [facility] Dexamethasone Confirm 12/01/16 17:17 Decadron Injection Administered 12/01/16 17:18 Dose 4 mg .ROUTE .STK-MED ONE Hydralazine HCl 100 mg 12/01/16 22:00 Apresoline PO 05/30/17 21:59 TID [place] Tranexamic Acid 1,000 mg/ 110 mls @ 660 mls/hr 12/01/16 11:41 12/01/16 12:22 Sodium Chloride IV 12/01/16 11:50 110 mls ONCE ONE Administration Tranexamic Acid 1,000 mg/ 510 mls @ 63.75 mls/hr 12/01/16 11:41 12/01/16 12:45 Sodium Chloride IV 12/01/16 19:40 510 mls ONCE ONE Administration Pantoprazole Sodium 80 mg/ 100 mls @ 10 mls/hr 12/01/16 11:45 12/01/16 12:40 Sodium Chloride IV 12/01/16 21:44 100 mls EDNOW ONE Administration Sodium Chloride 500 mls @ 1,500 mls/hr 12/02/16 01:14 12/02/16 01:35 Ns IV 12/02/16 01:33 500 mls ONCE ONE Administration Sodium Chloride 500 mls @ 0 mls/hr 12/02/16 03:00 12/02/16 03:06 Ns IV 12/02/16 03:01 500 mls ONCE ONE Administration As Directed Metoprolol Tartrate 50 mg 12/01/16 21:00 Lopressor PO 05/30/17 20:59 BID [facility] Metoprolol Tartrate 12.5 mg 12/01/16 23:43 12/01/16 23:53 Lopressor PO 12/01/16 23:44 12.5 mg ONCE ONE Administration Ondansetron HCl Confirm 12/01/16 13:05 Zofran Administered 12/01/16 13:06 Dose 4 mg .ROUTE .STK-MED ONE Ondansetron HCl 4 mg 12/01/16 15:22 Zofran IVP 05/30/17 15:21 Q4HRS PRN Nausea/Vomiting, Can't Take PO Ondansetron HCl Confirm 12/01/16 17:02 Zofran Administered 12/01/16 17:03 Dose 4 mg .ROUTE .STK-MED ONE Propafenone HCl 225 mg 12/01/16 21:00 Rythmol Sr PO 05/30/17 20:59 BID [facility] Propofol Confirm 12/01/16 16:06 Diprivan 10 Mg/Ml (Premix) Administered 12/01/16 16:07 Dose 500 mg IV .STK-MED ONE Physical Exam - Physical Exam General Appearance: alert, no apparent distress Respiratory: chest non-tender, lungs clear, normal breath sounds Cardiac/Chest: regular rate, rhythm Abdomen: normal bowel sounds, non-tender, soft Skin: normal color, warm/dry Neuro/Psych: no motor/sensory deficits, alert, normal mood/affect, oriented x 3 ICD10 Worksheet Patient Problems: Problems Problem Status Diagnosed Anemia due to GI blood loss Acute Upper GI bleed Acute Weakness Acute
[2016-12-02 15:44] LABS: HEMATOCRIT 22.7 % (40.0-51.0); HEMOGLOBIN 7.9 g/dL (13.7-17.5)
[2016-12-02] MEDS ORDERED: BISACODYL 10 MG SUPP PR PRN (18:32)
[2016-12-02] MEDS ORDERED: LACTULOSE 20 GM/30 ML UDCUP PO PRN (18:32)
[2016-12-02] MEDS ORDERED: MAGNESIUM HYDROXIDE 30 ML UDCUP PO PRN (18:32)
[2016-12-02] MEDS: POLYETHYLENE GLYCOL 3350 17 GM PKT PO PRN (18:54)
[2016-12-02] MEDS: SENNOSIDES/DOCUSATE SODIUM TAB PO SCH (20:29)
[2016-12-03] MEDS: LEVOTHYROXINE 88 MCG TAB PO SCH (05:23)
[2016-12-03] MEDS: TACROLIMUS 1 MG CAP PO SCH (05:23)
[2016-12-03 05:45] LABS: % IMMATURE GRANULYOCYTES 0.8 % (0.0-1.1); ABSOLUTE IMMATURE GRANULOCYTES 0.06 10^3/uL (0.00-0.10); ADD DIFF? NO; ADD MORPH? NO; ADD SCAN? NO; ATYPICAL LYMPHOCYTE FLAG 20 (0-99); FRAGMENT RBC FLAG 0 (0-99); HEMATOCRIT 22.7 % (40.0-51.0); HEMOGLOBIN 7.8 g/dL (13.7-17.5); LEFT SHIFT FLG 10 (0-99); LIPEMIA HEMOLYSIS FLAG 90 (0-99); MEAN CELL HEMOGLOBIN 31.1 pg (27.9-34.1); MEAN CELL HEMOGLOBIN CONCENTR. 34.4 g/dL (32.4-36.7); MEAN CELL VOLUME 90.4 fL (81.5-99.8); MEAN PLATELET VOLUME 9.8 fL (8.7-11.7); PLATELET CLUMPS FLAG 10 (0-99); PLATELET COUNT 126 10^3/uL (150-400); RED BLOOD CELL COUNT 2.51 10^6/uL (4.40-6.38); RED CELL DISTRIBUTION WIDTH 14.9 % (11.5-15.2)
[2016-12-03 06:01] LABS: ANION GAP 7 mEq/L (8-16); CALCIUM 8.1 mg/dL (8.5-10.4); CARBON DIOXIDE 17 mEq/l (22-31); CHLORIDE 120 mEq/L (97-110); GLOMERULAR FILTRATION RATE > 60; GLUCOSE 89 mg/dL (70-100); POTASSIUM 4.3 mEq/L (3.5-5.2); SODIUM 144 mEq/L (134-144)
[2016-12-03] MEDS: CYANO/VITAMIN B12 1000 MCG TAB PO SCH (09:08)
[2016-12-03] MEDS: SENNOSIDES/DOCUSATE SODIUM TAB PO SCH (09:09)
[2016-12-03] MEDS: PANTOPRAZOLE SODIUM 40 MG TAB PO SCH (09:09)
[2016-12-03] MEDS: FLUDROCORTISONE ACETATE 0.1 MG TAB PO SCH (09:09)
[2016-12-03] MEDS: POLYETHYLENE GLYCOL 3350 17 GM PKT PO PRN (09:10)
--- NOTE | 2016-12-03 10:45 | SOAPPROG ---
SOAP Progress Note Assessment/Plan: Assessment: DU, stable. Tolerating PO. No signs of rebleeding Plan: 1. Pantoprazole 40 mg BID x 2 weeks then 40 mg daily indefinitely 2. If continues to be stable ok for discharge later today 12/03/16 10:42 Subjective: CC: DU, GI Bleed Patient without complaint. Anxious to go home Objective: Vital Signs Temp Pulse Resp BP Pulse Ox 36.7 C 87 16 133/84 H 94 12/03/16 07:47 12/03/16 07:47 12/03/16 07:47 12/03/16 07:47 12/03/16 07:47 Laboratory Results 12/03/16 05:31 12/03/16 05:31 12/02/16 12/03/16 12/04/16 05:59 05:59 05:59 Intake Total 7640 1250 Output Total 1050 1925 200 Balance 6590 -675 -200 PT 16.8 SEC (12.0-15.0) H 12/01/16 11:20 INR 1.36 (0.83-1.16) H 12/01/16 11:20 Generic Name Dose Route Start Last Admin Trade Name Freq PRN Reason Stop Dose Admin Acetaminophen 650 mg 12/01/16 15:22 Tylenol PO 05/30/17 15:21 Q4HRS PRN Pain, Mild/Fever, Can Take PO Bisacodyl 10 mg 12/02/16 18:32 Dulcolax Rectal AL 05/31/17 18:31 DAILY PRN Constipation Protocol Fludrocortisone Acetate 0.1 mg 12/02/16 09:00 12/03/16 09:09 Florinef PO 05/31/17 08:59 0.1 mg DAILY [place] Administration Lactulose 20 gm 12/02/16 18:32 Cephulac PO 05/31/17 18:31 TID PRN Constipation Protocol Levothyroxine Sodium 88 mcg 12/02/16 06:00 12/03/16 05:23 Synthroid PO 05/31/17 05:59 88 mcg DAILY06 [place] Administration Magnesium Hydroxide 30 ml 12/02/16 18:32 Milk Of Magnesia PO 05/31/17 18:31 DAILY PRN Constipation Protocol Ondansetron HCl 4 mg 12/01/16 13:59 12/01/16 13:30 Zofran IVP 05/30/17 13:58 4 mg Q4HRS PRN Administration Nausea/Vomiting, Can't Take PO Ondansetron HCl 4 mg 12/01/16 15:22 Zofran Odt PO 05/30/17 15:21 Q4HRS PRN Nausea/Vomiting, Use 1st Oxycodone HCl 5 - 10 mg 12/01/16 15:22 Oxycodone Ir PO 12/11/16 15:21 Q3HRS PRN Pain, Severe Able to Take PO Pantoprazole Sodium 40 mg 12/02/16 13:30 12/03/16 09:09 Protonix PO 05/31/17 13:29 40 mg BID [place] Administration Polyethylene Glycol 17 gm 12/02/16 18:32 12/03/16 09:10 Miralax PO 05/31/17 18:31 17 gm DAILY PRN Administration Constipation, patient prefers Protocol Promethazine HCl 6.25 - 12.5 mg 12/01/16 15:22 Phenergan Injection IVP 05/30/17 15:21 Q6HRS PRN Nausea/Vomiting, Use 2nd Senna/Docusate Sodium 1 - 2 tab 12/02/16 21:00 12/03/16 09:09 Senokot-S PO 05/31/17 20:59 2 tab BID [place] Administration Protocol Tacrolimus 1 mg 12/01/16 17:30 12/03/16 05:23 Prograf PO 05/30/17 17:29 1 mg Q12H [place] Administration Trazodone HCl 50 mg 12/01/16 20:57 12/01/16 21:43 Trazodone PO 05/30/17 20:56 50 mg PRN PRN Administration insomnia Vitamin B Complex 1,000 mcg 12/02/16 09:00 12/03/16 09:08 Vitamin B12 PO 05/31/17 08:59 1,000 mcg DAILY [place] Administration Discontinued Medications Generic Name Dose Route Start Last Admin Trade Name Freq PRN Reason Stop Dose Admin Amlodipine Besylate 10 mg 12/02/16 09:00 Norvasc PO 05/31/17 08:59 DAILY [facility] Dexamethasone Confirm 12/01/16 17:17 Decadron Injection Administered 12/01/16 17:18 Dose 4 mg .ROUTE .STK-MED ONE Hydralazine HCl 100 mg 12/01/16 22:00 Apresoline PO 05/30/17 21:59 TID [facility] Tranexamic Acid 1,000 mg/ 110 mls @ 660 mls/hr 12/01/16 11:41 12/01/16 12:22 Sodium Chloride IV 12/01/16 11:50 110 mls ONCE ONE Administration Tranexamic Acid 1,000 mg/ 510 mls @ 63.75 mls/hr 12/01/16 11:41 12/01/16 12:45 Sodium Chloride IV 12/01/16 19:40 510 mls ONCE ONE Administration Pantoprazole Sodium 80 mg/ 100 mls @ 10 mls/hr 12/01/16 11:45 12/01/16 12:40 Sodium Chloride IV 12/01/16 21:44 100 mls EDNOW ONE Administration Sodium Chloride 1,000 mls @ 125 mls/hr 12/01/16 15:30 12/02/16 13:53 Ns IV 05/30/17 15:29 1,000 mls CONT [place] Administration Sodium Chloride 500 mls @ 1,500 mls/hr 12/02/16 01:14 12/02/16 01:35 Ns IV 12/02/16 01:33 500 mls ONCE ONE Administration Sodium Chloride 500 mls @ 0 mls/hr 12/02/16 03:00 12/02/16 03:06 Ns IV 12/02/16 03:01 500 mls ONCE ONE Administration As Directed Metoprolol Tartrate 50 mg 12/01/16 21:00 Lopressor PO 05/30/17 20:59 BID [facility] Metoprolol Tartrate 12.5 mg 12/01/16 23:43 12/01/16 23:53 Lopressor PO 12/01/16 23:44 12.5 mg ONCE ONE Administration Ondansetron HCl Confirm 12/01/16 13:05 Zofran Administered 12/01/16 13:06 Dose 4 mg .ROUTE .STK-MED ONE Ondansetron HCl 4 mg 12/01/16 15:22 Zofran IVP 05/30/17 15:21 Q4HRS PRN Nausea/Vomiting, Can't Take PO Ondansetron HCl Confirm 12/01/16 17:02 Zofran Administered 12/01/16 17:03 Dose 4 mg .ROUTE .STK-MED ONE Propafenone HCl 225 mg 12/01/16 21:00 Rythmol Sr PO 05/30/17 20:59 BID [facility] Propofol Confirm 12/01/16 16:06 Diprivan 10 Mg/Ml (Premix) Administered 12/01/16 16:07 Dose 500 mg IV .STK-MED ONE Physical Exam - Physical Exam General Appearance: alert, no apparent distress Respiratory: lungs clear, normal breath sounds Cardiac/Chest: irregularly irregular Abdomen: normal bowel sounds, non-tender Skin: normal color, warm/dry Neuro/Psych: no motor/sensory deficits, alert, normal mood/affect ICD10 Worksheet Patient Problems: Problems Problem Status Diagnosed Anemia due to GI blood loss Acute Upper GI bleed Acute Weakness Acute
[2016-12-03 11:43] VITALS: RESP 20; O2SAT 97
[2016-12-03 13:09] LABS: HEMATOCRIT 26.4 % (40.0-51.0); HEMOGLOBIN 9.2 g/dL (13.7-17.5)
--- NOTE | 2016-12-03 13:41 | PDDCSUM ---
Discharge Summary Discharge Summary: Dates of service 12/01-12/03/16 Dc diagnosis: # GI bleed 2/2 duodenal ulcer # acute blood loss anemia # htn # a fib # recurrent falls HPI: 81 yo M fairly recently relocated here from [place] presenting with c/o recurrent falls and dark stools found to have anemia in setting of acute GI bleed while on both nsaids and eliquis. Also noted to be hypotensive on multiple BM meds. # GI bleed: found to be 2/2 duodenal ulcer s/p EGD yesterday. H/h stable. Patient had been on AC prior to admission. Will continue PPI, continue to trend h/h. GI following, may need repeat scope if evidence of rebleeding. Avoid nsaids , return precautions given. # acute blood loss anemia: in the setting of above, s/p transfusion of 3 units and stable since that time # a fib: has a chads vasc of 3 and was recently started on eliquis in [place] for decreasing his stroke risk, reviewed with patient and his son. Rate increased off of bb/propafenone which have been resumed. Will have him start aspirin in 2 weeks so long as no e/o bleeding again but will recommend that he no longer take AC. # htn: with bp low to low normal since admission off of all meds, on multiple meds at home which other than bb/propafenone and low dose lasix. Discussed with the patient that he needs to f/u with his PCP to determine if other meds need to be added back including amlodipine, lisinopril, hydralazine. # hx of liver tx: continue tacrolimus, has been doing well # moderate pulm htn/mod TR: without other significant valvular disease noted on echo Dispo: dc home f/u with PCP in the next week, will need f/u cbc and f/u on bp > 35 min spent in care of this patient more than half in face to face counseling regarding f/u care plans and return precautions
[2016-12-03 16:10] VITALS: BP 141/97; PULSE 110; TEMP 98.4
== END 2016-12-03 16:30 | disposition home or self-care (01) | DRG 378 ==
LOC: EDUNIT# → F2N 14:14 → F3E 12-02 15:59
PROVIDERS: ADMIT Internal Medicine; ATTEND Internal Medicine
PROC: 30233N1 Transfusion of Nonautologous Red Blood Cells into Peripheral Vein, Percutaneous Approach (ICD-10-PCS; 2016-12-01)
PROC: 0DB68ZX Excision of Stomach, Via Natural or Artificial Opening Endoscopic, Diagnostic (ICD-10-PCS; principal; 2016-12-02)
PROC: 0W3P8ZZ Control Bleeding in Gastrointestinal Tract, Via Natural or Artificial Opening Endoscopic (ICD-10-PCS; principal; 2016-12-02)
DX: K26.4 Chronic or unspecified duodenal ulcer with hemorrhage (principal); D62 Acute posthemorrhagic anemia; I10 Essential (primary) hypertension; I36.1 Nonrheumatic tricuspid (valve) insufficiency; Z94.4 Liver transplant status; I48.91 Unspecified atrial fibrillation; E03.9 Hypothyroidism, unspecified; Z85.46 Personal history of malignant neoplasm of prostate; Z79.01 Long term (current) use of anticoagulants; Z91.81 History of falling; Z66 Do not resuscitate
CPT/HCPCS: 96365; 96366; 97161-GP; 97165-GO; G8978-GP-CJ; G8979-GP-CI; G8987-GO-CI; G8988-GO-CI; J1100; J2405; J2704; J7507; P9016

== ENCOUNTER 2018-09-22 06:05 | Day surgery (SDC) | payer OTHER ==
[2018-09-22] MEDS ORDERED: ASPIRIN EC 325 MG TAB PO ONE (06:12)
[2018-09-22] MEDS ORDERED: FAMOTIDINE 20 MG TAB PO ONE (06:12)
[2018-09-22] MEDS ORDERED: DIAZEPAM 5 MG TAB PO ONE (06:12)
[2018-09-22] MEDS ORDERED: diphenhydrAMINE 25 MG CAP PO ONE (06:12)
[2018-09-22] MEDS ORDERED: NS 1,000 ML IV ONE (06:12)
[2018-09-22 06:52] LABS: PLATELET COUNT 195 10^3/uL (150-400)
[2018-09-22] MEDS ORDERED: CLOPIDOGREL BISULFATE 75 MG TAB ONE (06:53)
[2018-09-22] MEDS ORDERED: CLOPIDOGREL BISULFATE 75 MG TAB PO ONE (07:00)
[2018-09-22 07:02] LABS: INR 1.26 (0.83-1.16)
[2018-09-22] MEDS ORDERED: IOPAMIDOL (ISOVUE-370) 150 ML BTL IV ONE (07:08)
[2018-09-22] MEDS ORDERED: fentaNYL 100 MCG/2 ML INJ ONE (07:08)
[2018-09-22] MEDS ORDERED: LIDOCAINE 1% 300 MG/30 ML SDV ONE (07:08)
[2018-09-22] MEDS ORDERED: MIDAZOLAM 2 MG/2 ML VIAL ONE (07:08)
--- NOTE | 2018-09-22 07:09 | PDPROPOC ---
Sedation Plan of Care Sedation Plan of Care: mental status noted, patient educated of risks, benefits , alternatives, patient can tolerate sedation ASA Classification: ASA 2 Planned drugs: fentanyl, midazolam Mallampati Score: Class 2 Mallampati Reference Image: Patient passed 3-3-2 rule?: Yes
--- NOTE | 2018-09-22 07:09 | PDHPUP ---
History & Physical Update H&P update statement: This history and physical update is based on an assessment of the patient which was completed after admission or registration (within 24 hours), but prior to the surgery/procedure. H&P update: H&P reviewed & patient examined, no change in patient's condition since H&P completed
[2018-09-22] MEDS ORDERED: ONDANSETRON 4 MG/2 ML VIAL IVP PRN (08:23)
[2018-09-22] MEDS ORDERED: HYDROCODONE/APAP 5/325 TAB PO PRN (08:23)
[2018-09-22] MEDS ORDERED: ATROPINE SULFATE 1 MG/10 ML SYR IVP PRN (08:23)
[2018-09-22] MEDS ORDERED: OXYCODONE/APAP 5/325 TAB PO PRN (08:23)
[2018-09-22] MEDS ORDERED: NITROGLYCERIN 0.4 MG BTL SL PRN (08:23)
--- NOTE | 2018-09-22 09:15 | CPEKG ---
Test Reason : OPEN Blood Pressure : / mmHG Vent. Rate : 080 BPM Atrial Rate : 124 BPM P-R Int : 200 ms QRS Dur : 086 ms QT Int : 399 ms P-R-T Axes : 000 050 251 degrees QTc Int : 461 ms Atrial fibrillation LVH with secondary repolarization abnormality Anterior Q waves, possibly due to LVH No significant change from December 01, 2016. Confirmed by Marcus Meyers ([id number]) on 09/22/2018 9:14:32 AM Referred By: Confirmed By:Marcus Meyers
[2018-09-22] MEDS ORDERED: IOPAMIDOL (ISOVUE 370) 100 ML BTL IV ONE (11:36)
--- NOTE | 2018-09-22 18:56 | CPIP ---
DATE OF PROCEDURE: 09/22/2018 INDICATIONS FOR PROCEDURE: Severe symptomatic aortic stenosis. PROCEDURES: 1. Nonselective left groin sheathogram. 2. Right heart catheterization with Van-Mariela catheter. 3. Bilateral coronary angiography. 4. Abdominal aortogram. HISTORY: Briefly this is an 82-year-old male with history of worsening shortness of breath, known cr itical aortic stenosis. The patient has been seen by CT surgery and deemed to be a suitable candidat e for transfemoral TAVR. DESCRIPTION OF PROCEDURE: After informed consent was obtained,the patient was brought to [facility] where the left groin was prepped and draped in the usual sterile fashion. Using [employer] ne, a short 6-Macanese sheath in the left common femoral artery verified angiographically. Of note, the femoral angiogram showed severe tortuosity of the proximal common femoral artery, distal external il iac artery. The 7-Macanese sheath was inserted into the left common vein. A right heart catheterizati on was then obtained with a Van-Mariela catheter. Wedge pressure was a mean of 12, AA of 14, VA 16, PA pressure systolic 31, diastolic 12, mean of 21. RV pressure systolic 30, diastolic 1 end of 6. RA pressure mean of 5, AA of 7, V-wave 6. Cardiac output was measured to be 4.2 by Kely with a cardiac index of 2.4. AO sat was 88%, with a PA sat of 63%. Van-Mariela catheter was removed. At this time we decided to change this 6-Macanese sheath in the left groin to a long 25 cm sheath given the excessive tortuosity. A 0.035 wire was gently advanced into the ascending aorta. A JR4 cathete r was then advanced across this wire. Once this was performed, the wire was taken out. An Amplatz s uperstiff wire was then advanced. After the Amplatz superstiff wire was advanced, there was clear str aightening of the vessel. The short 6-Macanese sheath was removed. A 6-Macanese 25 cm sheath was then p laced into the left femoral artery access. After this was performed, a JR4 catheter was then advance d on the Amplatz superstiff wire to the right coronary artery. Images of the right coronary artery r evealed normal ostial RCA, normal ostia with just mild plaque in its proximal aspect. Mid distal RCA was apparently healthy, free of disease. RP and RPLS appeared to be healthy and free of disease. Af ter these images were obtained. The JR4 catheter was removed. A JL4 catheter was advanced to the le ft coronary artery. Imaging of the left coronary artery revealed 20% ostial left main, with 30% dist al left main. The left circumflex artery was a large vessel, giving off multiple small marginal juan francisco sridhar were healthy and free of disease. There was a ramus intermedius which was healthy and free of d isease. The LAD was a long vessel which wrapped around the apex. The LAD had mid body area in the m id portion of approximately 30% to 40% disease, distally appeared to be widely patent. Small diagona l arteries coming off the LAD appeared to be widely patent. After the images were obtained, the JL4 catheter was removed. A JR4 pigtail catheter advanced to the ascending aorta. Abdominal aortogram was obtained which showe d widely patent distal aorta, widely patent common external internal iliac arteries. Of note, there was less tortuosity of the right common femoral takeoff compared to the left. Pigtail catheter was r emoved over an 0.035 wire. Left groin was closed with manual pressure. Patient tolerated the proced ure well with no complications. IMPRESSION: 1. Noncritical coronary artery disease mainly in the noncritical coronary disease mainly in the left main and mid left anterior descending area. 2. Normal right coronary artery. 3. Low normal cardiac output. 4. Patent aortoiliac conduit with tortuous distal vessels. PLAN: The patient will have sheaths DC'd with manual pressure. Three hours bed rest. Will have CTs o f the chest, abdomen, and pelvis, as well as carotid ultrasound. Plan for TAVR in the next 2-3 weeks . /[id number]/MODL
== END 2018-09-22 14:30 | disposition home or self-care (01) ==
LOC: FCATH 06:05
PROVIDERS: ATTEND Internal Medicine Cardiovascular Disease
DX: I35.0 Nonrheumatic aortic (valve) stenosis (principal); I25.10 Atherosclerotic heart disease of native coronary artery without angina pectoris; I70.0 Atherosclerosis of aorta; I70.1 Atherosclerosis of renal artery; I70.8 Atherosclerosis of other arteries; R91.1 Solitary pulmonary nodule; I77.9 Disorder of arteries and arterioles, unspecified; I48.91 Unspecified atrial fibrillation; N18.9 Chronic kidney disease, unspecified; I12.9 Hypertensive chronic kidney disease with stage 1 through stage 4 chronic kidney disease, or unspecified chronic kidney disease; E03.9 Hypothyroidism, unspecified; K83.01 Primary sclerosing cholangitis; Z79.01 Long term (current) use of anticoagulants; Z85.46 Personal history of malignant neoplasm of prostate; Z94.4 Liver transplant status; Z76.82 Awaiting organ transplant status; Z23 Encounter for immunization
CPT/HCPCS: C1769; J1644; J2250; J3010; Q9967

== ENCOUNTER 2018-10-11 07:32 | Inpatient (IN) | payer OTHER ==
[2018-10-11] MEDS ORDERED: NS 1,000 ML IV ONE (07:37)
[2018-10-11] MEDS ORDERED: ceFAZolin 2 GM/DEXTROSE 100 ML IV ONE (08:00)
[2018-10-11 08:32] LABS: INR 1.07 (0.83-1.16); PROTIME(PATIENT) 14.1 SEC (12.0-15.0)
[2018-10-11] MEDS ORDERED: LIDOCAINE 1% 300 MG/30 ML SDV ONE (08:42)
[2018-10-11] MEDS ORDERED: IOPAMIDOL (ISOVUE-370) 150 ML BTL IV ONE (08:43)
--- NOTE | 2018-10-11 09:00 | PDPROPOC ---
Sedation Plan of Care Sedation Plan of Care: mental status noted, patient educated of risks, benefits , alternatives, patient can tolerate sedation ASA Classification: ASA 2 Planned drugs: other Mallampati Score: Class 2 Mallampati Reference Image: Patient passed 3-3-2 rule?: Yes
--- NOTE | 2018-10-11 09:07 | PDANEPAE ---
ANE History of Present Illness 82 yo for tavr ANE Past Medical History - Cardiovascular History Hx Hypertension: Yes Hx Arrhythmias: Yes Hx Chest Pain: No Hx Coronary Artery / Peripheral Vascular Disease: Yes Hx CHF / Valvular Disease: Yes Hx Palpitations: No - Pulmonary History Hx COPD: No Hx Asthma/Reactive Airway Disease: No Hx Recent Upper Respiratory Infection: No Hx Oxygen in Use at Home: No Hx Sleep Apnea: No - Endocrine History Hx Diabetes: No ANE Review of Systems Review of Systems: - Exercise capacity METS (RN): 3 METS ANE Patient History - Allergies Allergies/Adverse Reactions: No Known Allergies Allergy (Verified 09/15/18 09:35) - Home Medications Home medications: home medication list seen and reviewed Home Medications: Cyanocobalamin [Vitamin B12 (*)] 1,000 mcg PO DAILY 12/01/16 [Last Taken 08:00] FLUDROCORTISONE ACETATE 0.1 mg PO DAILY 12/01/16 [Last Taken 10/10/18 08:00] Levothyroxine [Synthroid 88 mcg (*)] 88 mcg PO DAILY06 12/01/16 [Last Taken 06:00] Metoprolol Tartrate [Lopressor 50 mg (*)] 50 mg PO BID 12/01/16 [Last Taken 17:00] Tacrolimus [Prograf] 1 mg PO BID 12/01/16 [Last Taken 10/10/18 17:00] Carbamide Peroxide [Debrox Ear drops (*)] 5 drop EACHEAR BID PRN 09/15/18 [Last Taken 09/22/18] Lisinopril [Zestril 10 mg (*)] 10 mg PO DAILY 09/15/18 [Last Taken 10/10/18 08: 00] Polyethylene Glycol 3350 [Miralax 17 gm (*)] 17 gm PO DAILY 09/15/18 [Last Taken 10/10/18 08:00] Warfarin Sodium [Coumadin 2.5MG (*)] 2.5 mg PO DAILY16 09/15/18 [Last Taken 10/12 16:00] amLODIPine BESYLATE [Norvasc 10 mg (*)] 10 mg PO DAILY 09/15/18 [Last Taken 08:00] - NPO status NPO Status: no food or drink >8 hours - Anes Hx Anes Hx: no prior problems - Smoking Hx Smoking Status: Never smoked ANE Labs/Vital Signs - Vital Signs Height: 5 ft 6.93 in Weight: 63.5 kg ANE Physical Exam - Airway Neck exam: FROM Mallampati Score: Class 2 Mouth exam: normal dental/mouth exam - Pulmonary Pulmonary: no respiratory distress - Cardiovascular Cardiovascular: regular rate and rhythym - ASA Status ASA Status: III ANE Anesthesia Plan Anesthesia Plan: MAC Lines/Monitors: central line
[2018-10-11] MEDS ORDERED: fentaNYL 100 MCG/2 ML INJ ONE (09:16)
[2018-10-11] MEDS ORDERED: PROPOFOL/EMULSION 500 MG/50 ML BOTTLE IV ONE (09:16)
[2018-10-11] MEDS ORDERED: PROTAMINE SULFATE 50 MG/5 ML VIAL IVP ONE (10:47)
[2018-10-11] MEDS ORDERED: HYDROmorphONE/DILAUDID 1 MG/ML INJ IVP PRN (10:58)
[2018-10-11] MEDS ORDERED: ONDANSETRON DISINTEGRATING 4 MG TAB PO PRN (10:58)
[2018-10-11] MEDS ORDERED: IBUPROFEN 800 MG TAB PO PRN (10:58)
[2018-10-11] MEDS ORDERED: hydrALAZINE 20 MG/ML VIAL IVP PRN (10:58)
[2018-10-11] MEDS ORDERED: ATROPINE SULFATE 1 MG/10 ML SYR IVP PRN (10:58)
[2018-10-11] MEDS ORDERED: ONDANSETRON 4 MG/2 ML VIAL IVP PRN (10:58)
[2018-10-11] MEDS ORDERED: oxyCODONE IR 5 MG TAB PO PRN (10:58)
[2018-10-11] MEDS ORDERED: CARBAMIDE PEROXIDE 15 ML OTIC.BTL EACHEAR PRN (10:59)
[2018-10-11] MEDS ORDERED: NALOXONE HCL 0.4 MG/ML INJ IVP PRN (11:26)
--- NOTE | 2018-10-11 11:26 | POSTANESTH ---
Post Anesthetic Evaluation Cardiovascular Status: Normal, Stable Respiratory Status: Normal, Stable Level of Consciousness/Mental Status: Can Participate in Eval Pain Control: Adequate, Prn Tx Ordered Nausea/Vomiting Control: Adequate, Prn Tx Ordered Complications Possibly Related to Anesthesia: None Noted
--- NOTE | 2018-10-11 11:34 | CPIP ---
DATE OF PROCEDURE: 10/11/2018 CO-SURGEONS: Dr. Vinicio Linton, Dr. Candace Hopper, Dr. Alon Patricia. PROCEDURES: 1. Nonselective left groin sheathogram. 2. Nonselective right groin sheathogram. 3. Balloon aortic valvuloplasty using 23 x 60 balloon. 4. Placement of Medtronic CoreValve Evolute R 34 mm valve via the transfemoral route. HISTORY: Briefly, this is an 82-year-old male with history of critical aortic symptomatic aortic ru nosis. The patient was deemed to be a suitable candidate for transfemoral TAVR by [address] surg eons. DESCRIPTION OF PROCEDURE: After informed consent, the patient was brought to [facility] where the patient w as sedated with MAC. The patient was administered 2 g of Ancef prior to the case. Right IJ line was placed with temporary pacemaker wire placed in right ventricle and capture being assessed. 8-Zimbabwean sheath in the left common femoral artery verified angiographically. 6-Zimbabwean sheath in the right fe moral artery verified angiographically, upsized to a 16-Zimbabwean sheath after double Perclose placement . Valve was crossed with AL1 catheter, straight stiff Glidewire, switched out for a Confida wire. At t his time, a balloon aortic valvuloplasty commenced with a 23 x 60 balloon. After this was performed under a pacing rate of 180 beats per minute, the balloon was removed. We then proceeded with placeme nt of a Medtronic CoreValve Evolute 34 R. This was deployed successfully. After deployment, there was noted to be mild AI; however, given the fact that the deployment was slig htly high, we decided that prior to doing any BAV, we would actually put a pigtail back into the LV f or simultaneous hemodynamics. The hemodynamics showed virtually no gradient between the LV and FA wit h only an EDP of approximately 60 mmHg. Given this low EDP, as well as the excellent gradient that w as present, we decided no post BAV would be needed. The pigtail catheter was removed over the 035 wi re. The right groin was closed with double Perclose. The left groin was closed with an 8-Zimbabwean Ang io-Seal. Patient tolerated the procedure well with no complications. IMPRESSION: Successful placement of Medtronic CoreValve Evolute R 34 by the transfemoral route. PLAN: The patient will be admitted to PCU. Further orders following clinical course. /[id number]/MODL
--- NOTE | 2018-10-11 11:48 | PDMN ---
Medical Necessity Medical necessity: [facility] S1320 aortic valve replacement, transcatheter 3 days [facility] INPT only OP: transfemoral TAVR
[2018-10-11] MEDS ORDERED: ACETAMINOPHEN 325 MG TAB PO SCH (12:00)
[2018-10-11] MEDS ORDERED: ACETAMINOPHEN 325 MG TAB PO PRN (15:00)
[2018-10-11] MEDS: WARFARIN SODIUM 2.5 MG TAB PO SCH (16:37)
[2018-10-11] MEDS: TACROLIMUS 1 MG CAP PO SCH (19:52)
[2018-10-11] MEDS: METOPROLOL TARTRATE 50 MG TAB PO SCH (19:52)
[2018-10-11] MEDS: PANTOPRAZOLE SODIUM 40 MG TAB PO SCH (19:52)
--- NOTE | 2018-10-11 23:08 | GOP ---
DATE OF OPERATION: 10/11/2018 SURGEON: Vinicio Linton MD PREOPERATIVE DIAGNOSIS: Severe symptomatic aortic stenosis. POSTOPERATIVE DIAGNOSIS: Severe symptomatic aortic stenosis. PROCEDURE PERFORMED: Transcatheter aortic valve replacement using a 34 mm Evolut R device via right femoral approach. FINDINGS: INDICATIONS: The patient is an 82-year-old gentleman with progressive dyspnea on exertion. He was f ound to have severe symptomatic aortic stenosis. He has normal coronaries. He was recommended to [facility] transcatheter aortic valve replacement. DESCRIPTION OF PROCEDURE: Patient was taken to the laboratory apparatus glass grinder, placed on the table in the supine posit ion. After administration of monitored anesthesia and sterile prep and drape and IV antibiotics, we began by anesthetizing both groins. Ultimately, the 16-Swedish sheath was placed on the right side pe rcutaneously with two pre-close devices having been deployed prior to sheath insertion. On the left side, 8-Swedish sheath was also placed for monitoring blood pressure and positioning of the pigtail. Once the sheaths were in place, TVT was tested and found to be functioning properly. We then heparin ized the patient and then crossed the valve. With myself in position [address] Beasley in position 2 , we deployed the 34 mm valve across the [place] valve while pacing at a rate of approximately 100. W e did pre-dilate this because of the heavy calcification of the valve. Once the valve was deployed, we were quite happy with the depth. The leak was mild on echo, and the valve was next fully deployed . The device and sheath were then removed from the right side, and these were closed using the pre-c lose technique, and the 8-Swedish sheath was also removed and closed with a closure device. The prota mine was administered. The patient tolerated the procedure well and was returned to recovery area in stable condition. DIRECT CARE PROVIDER: Alberto Beasley MD. /[id number]/MODL
[2018-10-12 04:33] LABS: PLATELET COUNT 151 10^3/uL (150-400)
[2018-10-12 04:42] LABS: INR 1.2 (0.83-1.16); PROTIME(PATIENT) 15.4 SEC (12.0-15.0)
[2018-10-12] MEDS: LEVOTHYROXINE 88 MCG TAB PO SCH (05:09)
--- NOTE | 2018-10-12 06:59 | PDCARPN ---
Cardiology Progress Note Chief Complaint: SOB Assessment/Plan: Assessment: s/p TAVR Plan: 10/12/18 06:58 doing well OOB IS check echo Subjective: doing well Reviewed/Discussed With: multidisciplinary team Time Spent with Patient: greater than 25 minutes Time Spent with Patient: Greater than 25 minutes spent on this patients care, greater than 50% of time spent counseling, educating, and coordinating care regarding the above mentioned plan. Objective: Vital Signs (8 Hrs) Temp Pulse Resp BP Pulse Ox 10/12/18 04:22 36.9 C 79 14 141/65 H 94 10/11/18 22:59 37.2 C 72 12 135/81 H 95 Intake/Output (24 Hrs) 10/11/18 10/12/18 10/13/18 05:59 05:59 05:59 Intake Total 1490 Output Total 1075 Balance 415 Intake: Oral (ml) 490 IV Intake (ml) 1000 Output: Urine (ml) 1075 Urinal 1075 Other: Weight 63.5 kg Number of Voids Urinal 2 Result Diagrams: 10/12/18 03:36 10/12/18 03:36 - Physical Exam Constitutional: healthy appearing Eyes: PERRL Ears, Nose, Mouth, Throat: moist mucous membranes Cardiovascular: irregularly irregular Peripheral Pulses: 1+: femoral (R), femoral (L) Respiratory: clear to auscultate bilat Gastrointestinal: normoactive bowel sounds Genitourinary: no suprapubic tenderness Skin: no rashes Musculoskeletal: no muscular tenderness Neurologic: AAOx3 Psychiatric: cooperative ICD10 Worksheet Patient Problems: Problems Problem Status Onset Anemia due to GI blood loss Acute Upper GI bleed Acute Weakness Acute
[2018-10-12] MEDS: FLUDROCORTISONE ACETATE 0.1 MG TAB PO SCH (08:57)
[2018-10-12] MEDS: TACROLIMUS 1 MG CAP PO SCH ×2 (08:57→20:10)
[2018-10-12] MEDS: METOPROLOL TARTRATE 50 MG TAB PO SCH ×2 (08:57→20:10)
[2018-10-12] MEDS: LISINOPRIL 10 MG TAB PO SCH (08:57)
[2018-10-12] MEDS: PANTOPRAZOLE SODIUM 40 MG TAB PO SCH ×2 (08:57→20:10)
[2018-10-12] MEDS: CYANO/VITAMIN B12 1000 MCG TAB PO SCH (08:57)
[2018-10-12] MEDS: POLYETHYLENE GLYCOL 3350 17 GM PKT PO SCH (08:58)
--- NOTE | 2018-10-12 12:34 | ECHO ---
[email or web address] [address] [address] Main: [phone] Fax: Transthoracic Echocardiogram Name: ADELAIDE RIBEIRO MR#: [id number] Study Date: 10/12/2018 Study Time: 10:05 AM Date of : 1935 Age: 82 year(s) Height: 167.6 cm (66 in.) Weight: 63.05 kg (139 lb.) BSA: 1.71 m2 Gender: Male Examination: Echo Indication: Post TAVR Image Quality: Contrast: Requested by: Alberto Beasley BP: 104 mmHg/70 mmHg Heart Rate: Rhythm: Indication: Post TAVR Procedure Staff Collaborative Physician: Juan Diego Wasserman RDCS Reading Physician: Alberto Beasley MD Requesting Provider: Conclusions: Mild concentric LV hypertrophy. Global hypercontractility of the left ventricle. EF is 72 %. Mild mitral valve regurgitation is present. There is a percutaneous CoreValve in the aortic position. There are two jets of mild AI. There is no compromise of the mitral valve with normal EF . Mild to moderate tricuspid valve regurgitation. Measurements: Chambers Valvular Assessment AV/MV Valvular Assessment TV/PV Normal Normal Normal Name Value Range Name Value Range Name Value Range IVSd (2D): 1.0 cm (0.6 cm-1.1 AV Vmax: 1.40 m/s (1 m/s-1.7 TR Vmax: 3.02 mm/s ( - ) cm) m/s) TR PGmax: 36 mmHg ( - ) LVDd (2D): 4.3 cm (4.2 cm-5.9 AV maxP mmHg ( - ) syst. PAP: 41 mmHg ( - ) cm) AV meanP mmHg ( - ) PV Vmax: 0.78 m/s (0.6 m/s-0.9 LVDs (2D): 2.5 cm (2.1 cm-4 LVOT Vmax: 1.03 m/s (0.7 m/s-1.1 m/s) cm) m/s) PV PGmax: 2 mmHg ( - ) LVPWd (2D): 1.0 cm (0.6 cm-1 EZIO (Vmax): 3.1 cm2 ( - ) cm) EZIO (VTI): 3.5 cm ( - ) LVOTd 2.3 cm 2.3 cm mm AR (PHT): 569 ms ( - ) LVEF (2D): 72 (>=54 %) MV E Vmax: 1.17 m/s ( - ) Continued Measurements: Chambers Valvular Assessment AV/MV Valvular Assessment TV/PV Name Value Name Value Name Value LA Volume: 80 ml MV E/E' Septal: 23.10 CVP (est.): 5 mmHg LA Volume Index: 46.8 ml/m2 MV E/E' Lateral: 18.50 Patient: ADELAIDE RIBEIRO Study Date: 10/12/2018 Page 1 of 2 10:05 AM AR Vmax: 2.47 cm/s Findings: Left Ventricle: Normal size left ventricle. Mild concentric LV hypertrophy. Global hypercontractility of the left ventricle. EF is 72 %. No regional wall motion abnormality. Grade 1 diastolic dysfunction (abnormal relaxation). Right Ventricle: Normal size right ventricle. Normal RV function. Left Atrium: The left atrium is moderately to severely dilated. Right Atrium: The right atrium is moderately dilated. Mitral Valve: The mitral valve is normal in appearance. Mild mitral valve regurgitation is present. Aortic Valve: There is a percutaneous CoreValve in the aortic position. There are two jets of mild AI. There is no compromise of the mitral valve with normal EF . Tricuspid Valve: The tricuspid valve appears normal. Mild to moderate tricuspid valve regurgitation. The pulmonary artery pressure is mildly increased. Pulmonic Valve: The pulmonic valve is normal in appearance and function. Aorta: The aorta is normal. Pericardium: No pericardial effusion. (No Signature Object) Patient: ADELAIDE RIBEIRO Study Date: 10/12/2018 Page 2 of 2 10:05 AM [id number]
--- NOTE | 2018-10-12 14:39 | ASMTCMCOM ---
CM Note CM Note Notes: Spoke with pt's RN, pt and pt's son in the room. Pt lives independently at [facility]. Pt admitted for TAVR. Therapy evals pending. Pt would like to discharge home to son's home for a day or two and then back to his apartment independently. CM to follow. D/C Plan: Home with son independently v [facility] Date Signed: 10/12/2018 02:39 PM Electronically Signed By:Yissel Silveira
--- NOTE | 2018-10-12 16:28 | ECHO ---
[email or web address] [address] [address] Main: [phone] Fax: Transthoracic Echocardiogram Name: ADELAIDE RIBEIRO MR#: [id number] Study Date: 10/11/2018 Study Time: 10:01 AM Date of : 1935 Age: 82 year(s) Height: ( ) Weight: ( ) BSA: Gender: Male Examination: Limited Echo Indication: TAVR Image Quality: Contrast: Requested by: Alberto Beasley BP: / Heart Rate: Rhythm: Indication: TAVR Procedure Staff Success Coach: Norma Dorantes RDCS Reading Physician: Candace Hopper MD Requesting Provider: Alberto Beasley Conclusions: Normal global systolic LV function. Post TAVR: AV max PG is 12mmHG. AV mean PG is 5mmHG. EZIO 2.53cm. 2 separate jets of mild/moderate AI.. No pericardial effusion. Measurements: Chambers Valvular Assessment AV/MV Valvular Assessment TV/PV Normal Normal Normal Name Value Range Name Value Range Name Value Range LVOTd 2.3 cm 2.3 cm mm AV meanP mmHg ( - ) EZIO (VTI): 2.4 cm ( - ) AR (PHT): 606 ms ( - ) Continued Measurements: Valvular Assessment AV/MV Name Value AR Vmax: 2.44 cm/s Findings: Left Ventricle: Mild concentric LV hypertrophy. Normal global systolic LV function. Mitral Valve: Mild mitral valve regurgitation is present. Aortic Valve: Post TAVR: AV max PG is 12mmHG. AV mean PG is 5mmHG. EZIO 2.53cm. 2 separate jets of mild/moderate AI.. Pericardium: Patient: ADELAIDE RIBEIRO Study Date: 10/11/2018 Page 1 of 2 10:01 AM No pericardial effusion. Exam Comments: There was successful implantation of the percutaneous core valve in the aortic position. There is no compromise of the mitral valve. There is preserved LV systolic function. . (No Signature Object) Patient: ADELAIDE RIBEIRO Study Date: 10/11/2018 Page 2 of 2 10:01 AM [id number]
[2018-10-12] MEDS: WARFARIN SODIUM 2.5 MG TAB PO SCH (17:22)
[2018-10-13] MEDS: LEVOTHYROXINE 88 MCG TAB PO SCH (03:53)
[2018-10-13 04:40] LABS: PLATELET COUNT 113 10^3/uL (150-400)
[2018-10-13 04:47] LABS: INR 1.25 (0.83-1.16); PROTIME(PATIENT) 15.9 SEC (12.0-15.0)
[2018-10-13 07:12] VITALS: BP 136/69
--- NOTE | 2018-10-13 07:39 | PDCARPN ---
Cardiology Progress Note Chief Complaint: SOB Assessment/Plan: Assessment: s/p TAVR Plan: 10/12/18 06:58 doing well OOB IS check echo 10/13/18 07:38 Stable OOB d/c home today f/u next week [facility] Subjective: doing well Reviewed/Discussed With: multidisciplinary team Time Spent with Patient: greater than 25 minutes Time Spent with Patient: Greater than 25 minutes spent on this patients care, greater than 50% of time spent counseling, educating, and coordinating care regarding the above mentioned plan. Objective: Vital Signs (8 Hrs) Temp Pulse Resp BP Pulse Ox 10/13/18 07:11 36.6 C 86 12 136/69 H 93 10/13/18 04:00 37.1 C 79 16 117/70 95 10/13/18 00:00 37.2 C 76 14 120/68 92 Intake/Output (24 Hrs) 10/12/18 10/13/18 10/14/18 05:59 05:59 05:59 Intake Total 1490 1170 Output Total 1075 100 Balance 415 1070 Intake: Oral (ml) 490 1170 IV Intake (ml) 1000 Output: Urine (ml) 1075 100 Urinal 1075 100 Other: Weight 63.5 kg Number of Voids Toilet 2 Urinal 2 Number of Stools Toilet 1 Result Diagrams: 10/13/18 03:55 10/13/18 03:55 - Physical Exam Constitutional: no apparent distress Eyes: PERRL Ears, Nose, Mouth, Throat: moist mucous membranes Cardiovascular: systolic murmur, irregularly irregular Peripheral Pulses: 1+: femoral (R), femoral (L) Respiratory: clear to auscultate bilat Gastrointestinal: normoactive bowel sounds Genitourinary: no suprapubic tenderness Skin: no rashes Musculoskeletal: no muscular tenderness Neurologic: AAOx3 Psychiatric: cooperative ICD10 Worksheet Patient Problems: Problems Problem Status Onset Anemia due to GI blood loss Acute Upper GI bleed Acute Weakness Acute
[2018-10-13] MEDS ORDERED: ENOXAPARIN 60 MG/0.6 ML SYR SC SCH (09:00)
[2018-10-13] MEDS: POLYETHYLENE GLYCOL 3350 17 GM PKT PO SCH (09:33)
[2018-10-13] MEDS: TACROLIMUS 1 MG CAP PO SCH (09:34)
[2018-10-13] MEDS: LISINOPRIL 10 MG TAB PO SCH (09:34)
[2018-10-13] MEDS: PANTOPRAZOLE SODIUM 40 MG TAB PO SCH (09:34)
--- NOTE | 2018-10-13 10:22 | GDS ---
DISCHARGE DIAGNOSIS: Aortic stenosis. HOSPITAL COURSE: Briefly, this is 82-year-old male with history of liver transplant, severe symptoma tic aortic stenosis, atrial fibrillation who was admitted electively for transfemoral TAVR on 018. The patient underwent successful to transfemoral TAVR on 10/11/2018, with Medtronic CoreValve E volut 34 mm valve. Postprocedure, the patient has done very well. Echocardiogram post-procedure shows normally function ing EF with normally functioning valve with mild paravalvular leak. The patient will be discharged h ome this morning with his home medications, including his home Coumadin dose. Given the fact the pat ient is subtherapeutic still, we will start the patient on Lovenox 60 mg b.i.d. for 4 doses as a brid ge. The patient will follow up in the office in approximately 1 week's time. /[id number]/MODL
[2018-10-13] MEDS: METOPROLOL TARTRATE 50 MG TAB PO SCH (10:48)
[2018-10-13] MEDS: CYANO/VITAMIN B12 1000 MCG TAB PO SCH (10:48)
[2018-10-13] MEDS: FLUDROCORTISONE ACETATE 0.1 MG TAB PO SCH (10:48)
--- NOTE | 2018-10-13 13:54 | CPEKG ---
Test Reason : OPEN Blood Pressure : / mmHG Vent. Rate : 075 BPM Atrial Rate : 000 BPM P-R Int : 052 ms QRS Dur : 098 ms QT Int : 386 ms P-R-T Axes : 000 017 229 degrees QTc Int : 432 ms Atrial fibrillation LVH with secondary repolarization abnormality Anterior Q waves, possibly due to LVH Confirmed by Feliciano Wilhelm ([id number]) on 10/13/2018 1:54:11 PM Referred By: Confirmed By:Feliciano Wilhelm
== END 2018-10-13 12:20 | disposition home or self-care (01) | DRG 267 ==
LOC: FCATH 07:32 → F2W 10:58
PROVIDERS: ADMIT Internal Medicine Cardiovascular Disease; ATTEND Internal Medicine Cardiovascular Disease
PROC: 02RF38Z Replacement of Aortic Valve with Zooplastic Tissue, Percutaneous Approach (ICD-10-PCS; principal; 2018-10-11)
DX: I35.0 Nonrheumatic aortic (valve) stenosis (principal); Z00.6 Encounter for examination for normal comparison and control in clinical research program; Z94.4 Liver transplant status; I48.0 Paroxysmal atrial fibrillation; I10 Essential (primary) hypertension; Z79.01 Long term (current) use of anticoagulants
CPT/HCPCS: C1760; C1769; C1894; J0690; J1170; J1644; J1650; J2704; J2720; J3010; J7507; Q9967

== ENCOUNTER 2018-10-21 12:48 | Observation (INO) | payer OTHER ==
--- NOTE | 2018-10-21 13:10 | EDPHY ---
H & P Stated Complaint: weak 1w S/P TAVR Time Seen by Provider: 10/21/18 12:53 HPI/ROS: CHIEF COMPLAINT: Weakness and dyspnea following TAVR procedure approximately week ago HISTORY OF PRESENT ILLNESS: Patient has history of severe aortic stenosis and underwent a TAVR procedure approximately week ago. He presents to the ED today with increasing weakness, dyspnea and blurry vision. The patient denies any fever, cough or congestion. He denies any medication changes. The patient denies increasing edema, skin rashes or medication changes. The patient states that his symptoms are moderate in nature. He feels his dyspnea and weakness has increased than his pre cardiac procedure baseline. REVIEW OF SYSTEMS: A comprehensive 10 point review of systems is otherwise negative aside from elements mentioned in the history of present illness. Source: Patient Exam Limitations: No limitations - Personal History Current Tetanus/Diphtheria Vaccine: Yes Current Tetanus Diphtheria and Acellular Pertussis (TDAP): Yes - Medical/Surgical History Hx Asthma: No Hx Chronic Respiratory Disease: No Hx Diabetes: No Hx Cardiac Disease: Yes Hx Renal Disease: No Hx Cirrhosis: No Hx Alcoholism: No Hx HIV/AIDS: No Hx Splenectomy or Spleen Trauma: No Other PMH: PSH: liver transplant; prostitectomy; T&A; Appy; bhavesh; abd sx due to sepsis;. PMH: htn, TVAR - Social History Smoking Status: Never smoked - Physical Exam Exam: General Appearance: Thin elderly male, no acute distress Eyes: Pupils equal and round no pallor or injection ENT, Mouth: Mucous membranes moist Respiratory: There are no retractions, lungs are clear to auscultation Cardiovascular: Regular rate and rhythm Gastrointestinal: Old surgical incisions noted, abdomen is soft and nontender, no masses, bowel sounds normal Neurological: A&O, normal motor function, normal sensory exam, normal cranial nerves Skin: Ecchymosis noted at the left groin with small subcutaneous hematoma Musculoskeletal: Neck is supple nontender Extremities: symmetrical, full range of motion Constitutional: Initial Vital Signs Temperature (C) 36.3 C 10/21/18 12:55 Heart Rate 72 10/21/18 12:55 Respiratory Rate 16 10/21/18 12:55 Blood Pressure 118/61 10/21/18 12:55 O2 Sat (%) 92 10/21/18 12:55 O2 Delivery Mode Room Air Allergies/Adverse Reactions: No Known Allergies Allergy (Verified 10/21/18 12:54) Home Medications: Medication Instructions Recorded Cyanocobalamin [Vitamin B12 (*)] 1,000 mcg PO DAILY 12/01/16 FLUDROCORTISONE ACETATE 0.1 mg PO DAILY 12/01/16 Levothyroxine [Synthroid 88 mcg 88 mcg PO DAILY06 12/01/16 (*)] Metoprolol Tartrate [Lopressor 50 50 mg PO BID 12/01/16 mg (*)] Tacrolimus [Prograf] 1 mg PO BID 12/01/16 Pantoprazole Sodium [Protonix 40mg 40 mg PO BID #60 tab 12/03/16 (*)] Carbamide Peroxide [Debrox Ear 5 drop EACHEAR BID PRN 09/15/18 drops (*)] Lisinopril [Zestril 10 mg (*)] 10 mg PO DAILY 09/15/18 Polyethylene Glycol 3350 [Miralax 17 gm PO DAILY 09/15/18 17 gm (*)] Warfarin Sodium [Coumadin 2.5MG 2.5 mg PO DAILY16 09/15/18 (*)] amLODIPine BESYLATE [Norvasc 10 mg 10 mg PO DAILY 09/15/18 (*)] Enoxaparin [Lovenox 60 MG (*)] 60 mg SC BID #4 syr 10/13/18 Medical Decision Making - Diagnostics EKG Interpretation: EKG: Complete interpretation has been separately recorded in the [facility] archive. Summary impression: Atrial fibrillation, rate 64, LVH Imaging Results: Imaging Impressions Chest X-Ray 10/21/18 13:04 Impression: Mild CHF/fluid overload with small bilateral pleural effusions. ED Course/Re-evaluation: Patient presents the ED with dyspnea, weakness and visual changes one-week status post valve replacement. The patient presents to the ED is noted to be in chronic atrial fibrillation. Patient is noted to have a slightly elevated creatinine of 1.6. This chest x-ray does demonstrate evidence of heart failure. Echocardiogram does demonstrate AI which is unchanged from the postprocedure echo. Consultation was made with Shaji from the cardiology service. I have requested the patient be evaluated by the cardiology attending in the emergency department. The patient presents to the emergency department with likely diastolic dysfunction in the setting of AI following TAVR. Cardiology has requested IV Lasix. The patient received a total of 40 mg in the ED. They will admit the patient to the PCU for stabilization. Differential Diagnosis: Differential diagnosis considered includes atrial fibrillation, pericardial effusion, valvular dysfunction, myocardial infarction, critical anemia, heart failure - Data Points Laboratory Results: Laboratory Results 10/21/18 13:16 10/21/18 13:16 10/21/18 10/21/18 10/21/18 13:18 13:16 13:16 WBC RBC Hgb Hct MCV MCH MCHC RDW Plt Count MPV Neut % (Auto) Lymph % (Auto) Hood % (Auto) Eos % (Auto) Baso % (Auto) Nucleat RBC Rel Count Absolute Neuts (auto) Absolute Lymphs (auto) Absolute Monos (auto) Absolute Eos (auto) Absolute Basos (auto) Absolute Nucleated RBC Immature Gran % Immature Gran # Sodium 141 mEq/L mEq/L (135-145) Potassium 4.1 mEq/L mEq/L (3.5-5.2) Chloride 112 mEq/L H mEq/L (97-110) Carbon Dioxide 20 mEq/l L mEq/l (22-31) Anion Gap 9 mEq/L mEq/L (6-14) BUN 36 mg/dL H mg/dL (7-23) Creatinine 1.6 mg/dL H mg/dL (0.7-1.3) Estimated GFR 41 Glucose 167 mg/dL H mg/dL (70-100) Calcium 9.3 mg/dL mg/dL (8.5-10.4) POC Troponin I 0.03 ng/mL ng/mL (0.00-0.08) NT-Pro-B Natriuret Pep 08594 pg/mL H pg/mL (0-450) 10/21/18 13:16 WBC 5.57 10^3/uL 10^3/uL (3.80-9.50) RBC 4.06 10^6/uL L 10^6/uL (4.40-6.38) Hgb 11.4 g/dL L g/dL (13.7-17.5) Hct 34.1 % L % (40.0-51.0) MCV 84.0 fL fL (81.5-99.8) MCH 28.1 pg pg (27.9-34.1) MCHC 33.4 g/dL g/dL (32.4-36.7) RDW 14.7 % % (11.5-15.2) Plt Count 203 10^3/uL 10^3/uL (150-400) MPV 9.7 fL fL (8.7-11.7) Neut % (Auto) 63.1 % % (39.3-74.2) Lymph % (Auto) 23.2 % % (15.0-45.0) Hood % (Auto) 9.9 % % (4.5-13.0) Eos % (Auto) 2.7 % % (0.6-7.6) Baso % (Auto) 0.7 % % (0.3-1.7) Nucleat RBC Rel Count 0.0 % % (0.0-0.2) Absolute Neuts (auto) 3.52 10^3/uL 10^3/uL (1.70-6.50) Absolute Lymphs (auto) 1.29 10^3/uL 10^3/uL (1.00-3.00) Absolute Monos (auto) 0.55 10^3/uL 10^3/uL (0.30-0.80) Absolute Eos (auto) 0.15 10^3/uL 10^3/uL (0.03-0.40) Absolute Basos (auto) 0.04 10^3/uL 10^3/uL (0.02-0.10) Absolute Nucleated RBC 0.00 10^3/uL 10^3/uL (0-0.01) Immature Gran % 0.4 % % (0.0-1.1) Immature Gran # 0.02 10^3/uL 10^3/uL (0.00-0.10) Sodium Potassium Chloride Carbon Dioxide Anion Gap BUN Creatinine Estimated GFR Glucose Calcium POC Troponin I NT-Pro-B Natriuret Pep Point of Care Test Results: Chemistry 10/21/18 13:18 POC Troponin I 0.03 ng/mL ng/mL (0.00-0.08) Departure - Departure Disposition: [facility] Inpatient Acute Clinical Impression: Dyspnea, Diastolic dysfunction Condition: Good Referrals: Michelle Lanier MD [Primary Care Provider] - As per Instructions
[2018-10-21 13:23] LABS: PLATELET COUNT 203 10^3/uL (150-400)
--- NOTE | 2018-10-21 14:15 | CPEKG ---
Test Reason : OPEN Blood Pressure : / mmHG Vent. Rate : 064 BPM Atrial Rate : 131 BPM P-R Int : 080 ms QRS Dur : 090 ms QT Int : 506 ms P-R-T Axes : 000 038 -77 degrees QTc Int : 522 ms Atrial fibrillation LVH with secondary repolarization abnormality Anterior Q waves, possibly due to LVH Prolonged QT interval Confirmed by Wei De Leon ([id number]) on 10/21/2018 2:14:56 PM Referred By: Confirmed By:Wei De Leon
[2018-10-21] MEDS ORDERED: FUROSEMIDE 40 MG/4 ML VIAL IVP ONE (14:39)
[2018-10-21] MEDS ORDERED: ACETAMINOPHEN 325 MG TAB PO PRN (15:01)
[2018-10-21] MEDS ORDERED: ONDANSETRON DISINTEGRATING 4 MG TAB PO PRN (15:01)
[2018-10-21] MEDS ORDERED: ONDANSETRON 4 MG/2 ML VIAL IVP PRN (15:01)
--- NOTE | 2018-10-21 15:06 | ECHO ---
[email or web address] [address] [address] Main: [phone] Fax: Transthoracic Echocardiogram Name: KEESHA RIBEIRO MR#: [id number] Study Date: 10/21/2018 Study Time: 01:39 PM Date of : 1935 Age: 82 year(s) Height: 170.2 cm (67 in.) Weight: 63.5 kg (140 lb.) BSA: 1.74 m2 Gender: Male Examination: Echo Indication: Dyspnea after TVAR 10 days ago Image Quality: Good Contrast: Requested by: Wei De Leon BP: / Heart Rate: Rhythm: Indication: Dyspnea after TVAR 10 days ago Procedure Staff Manufacturing Production Technician: Norma Dorantes RDCS Reading Physician: Guerrero Quinones MD Requesting Provider: Conclusions: Normal size left ventricle. Mild concentric LV hypertrophy. The ejection fraction is estimated to be 70-75 %. No regional wall motion abnormality. Diastolic dysfunction is present. . The left atrium is moderately to severely dilated. There is a percutaneous Core valve in the aortic positon. There are 2 jets of AI. AV max PG is 8mmHG. AV mean PG is 4mmHG.. Mild to moderate aortic valve regurgitation. Mild to moderate tricuspid valve regurgitation. RVSP is 44mmHG.. No pericardial effusion. No significant change compared to 10/12/2018. Measurements: Chambers Valvular Assessment AV/MV Valvular Assessment TV/PV Normal Normal Normal Name Value Range Name Value Range Name Value Range IVSd (2D): 1.2 cm (0.6 cm-1.1 AV Vmax: 1.41 m/s (1 m/s-1.7 TR Vmax: 3.14 mm/s ( - ) cm) m/s) TR PGmax: 39 mmHg ( - ) LVDd (2D): 4.7 cm (4.2 cm-5.9 AV maxP mmHg ( - ) syst. PAP: 44 mmHg ( - ) cm) AV meanP mmHg ( - ) LVDs (2D): 2.8 cm (2.1 cm-4 LVOT Vmax: 0.90 m/s (0.7 m/s-1.1 cm) m/s) LVPWd (2D): 0.9 cm (0.6 cm-1 EZIO (Vmax): 2.7 cm2 ( - ) cm) EZIO (VTI): 3.0 cm ( - ) LVOTd 2.3 cm 2.3 cm mm MV E Vmax: 1.23 m/s ( - ) LVEF (MOD4): 67 % (>=55 %) MV A Vmax: 0.22 m/s ( - ) EF Range: 70-75 % MV E/A: 5.59 ( - ) Patient: KEESHA RIBEIRO Study Date: 10/21/2018 Page 1 of 2 01:39 PM Continued Measurements: Chambers Valvular Assessment AV/MV Valvular Assessment TV/PV Name Value Name Value Name Value LADs: 4.3 cm MV E/E' Septal: 19.40 CVP (est.): 5 mmHg LADs Lon.4 cm MV E/E' Lateral: 20.40 LA Area: 33.7 cm2 LA Volume: 135 ml LA Volume Index: 77.6 ml/m2 Additional Vessels Name Value Ao Ascendin.1 cm Findings: Left Ventricle: Normal size left ventricle. Mild concentric LV hypertrophy. Normal global systolic LV function. The ejection fraction is estimated to be 70-75 %. No regional wall motion abnormality. Diastolic dysfunction is present. . Right Ventricle: Normal size right ventricle. Left Atrium: The left atrium is moderately to severely dilated. Right Atrium: The right atrium is normal in size. Mitral Valve: The mitral valve is normal in appearance. Mild mitral valve regurgitation is present. Aortic Valve: Mild to moderate aortic valve regurgitation. There is a percutaneous Core valve in the aortic positon. There are 2 jets of AI. AV max PG is 8mmHG. AV mean PG is 4mmHG.. Tricuspid Valve: The tricuspid valve appears normal. Mild to moderate tricuspid valve regurgitation. The pulmonary artery pressure is mildly increased. RVSP is 44mmHG.. Pulmonic Valve: The pulmonic valve is normal in appearance and function. Mild pulmonic valve regurgitation is noted. Aorta: The aorta is normal. Pericardium: No pericardial effusion. (No Signature Object) Patient: KEESHA RIBEIRO Study Date: 10/21/2018 Page 2 of 2 01:39 PM [id number]
[2018-10-21 15:46] LABS: INR 1.68 (0.83-1.16); PROTIME(PATIENT) 19.9 SEC (12.0-15.0)
[2018-10-21] MEDS ORDERED: CARBAMIDE PEROXIDE 15 ML OTIC.BTL EACHEAR PRN (16:08)
--- NOTE | 2018-10-21 16:48 | GHP ---
DATE OF ADMISSION: 10/21/2018 CHIEF COMPLAINT: Shortness of breath and fatigue over the last week. HISTORY OF PRESENT ILLNESS: The patient is an 82-year-old male who is known to our practice. His primary scientist immunology is Dr. Brandon Moncada, his structural heart scientist immunology is Dr. Beasley. Patient with significant past history that includes chronic atrial fibrillation, chronic renal insufficiency, severe aortic stenosis in which he underwent a TAVR procedure on October 11 of this year, discharged on October 13 (Medtronic CoreValve Evolut R 34 mm), history of liver transplant, long-acting immuno/anti-rejection medication, and hypertension. The patient was brought in today by his son, patient stating that over the last week, since hospital discharge, he has been noticing mild shortness of breath, feels that this has worsened as time progressed. He has also noted occasional episodes of lightheadedness with blurred vision that happen spontaneously and then dissipates within a few minutes, usually happening when he is standing. He reports no chest pain or pressure. Reporting no recent fevers, chills, or night sweats. Does state some mild orthopnea, but denies any PND or edema. Reports no palpitations, near syncope, or syncopal events. Denies any symptoms suggestive of TIA or CVA. Reports no hematemesis. Reports no bleeding issues. Patient does report ongoing pain at bilateral groin site, catheter insertion sites at both groins, but states he has had no signs of infection and no drainage. Due to his ongoing shortness of breath, his son did call our office today, and was told to come to the ER for further evaluation. Upon arrival, electrocardiogram was done, noting that the patient was in atrial fibrillation while rate controlled, possible LVH. A chest x-ray was also done which did note mild CHF with fluid overload and small bilateral pleural effusions. Laboratory studies were drawn, showing mild anemia , but not significantly changed from his discharge from TAVR. He was also noted to have a proBNP of 11,400. Negative troponin at 0.03. PAST MEDICAL HISTORY: Includes chronic atrial fibrillation, carotid arthrosclerosis, non-flow limiting CAD based off cardiac catheterization done in August of this year, chronic renal insufficiency, history of liver transplant, hypertension, hypothyroidism, history of GI bleed, significant hospitalization for sepsis in 2012, and valvular heart disease, as mentioned above. PAST SURGICAL HISTORY: Includes liver transplant in April of 2013, multiple ____ , small-bowel obstruction, and TAVR procedure done on October 11, 2018, with a Medtronic CoreValve Evolut R 34 mm implantation. FAMILY HISTORY: Patient with reported family history of hypertension. SOCIAL HISTORY: He does not use any alcohol. He lives independently in [place]. His son lives locally, in [place]. He is retired. He has never smoked. He denies any illicit drugs. He is a . ALLERGIES: No known drug allergies. HOME MEDICATIONS: Include amlodipine 10 mg p.o. daily, warfarin 2.5 mg p.o. daily, Prograf 1 mg p.o. b.i.d., MiraLAX 17 g p.o. daily, Protonix 40 mg p.o. b.i.d., metoprolol tartrate 50 mg p.o. b.i.d., lisinopril 10 mg p.o. daily, synthroid 88 mcg p.o. daily, 0.1 mg p.o. daily, vitamin B12 at 1000 mg p.o. daily, Debrox ear drops 5 drops each ear b.i.d. p.r.n. REVIEW OF SYSTEMS: A 10-point review of systems done on patient. All negative except as mentioned above. PHYSICAL EXAMINATION: GENERAL: Thin, elderly male. He is alert and oriented to person, place, time, and situation. Appears to be under no acute distress. VITAL SIGNS: Blood pressure of 139/60, heart rate of 70, atrial fibrillation on the monitor. Respirations 18, saturating 90% on room air. Temperature of 37.1 degrees Celsius. HEENT: Head is normocephalic. Lips and tongue are pink and moist with no signs of cyanosis. Conjunctivae pink. NECK: Trachea is midline, +2 carotid pulses bilateral, no auscultated bruits. JVD at 5 to 6 cm above the sternal notch at a 45 degree angle. RESPIRATORY: Mild rales noted in bases bilateral, no rhonchi or wheezing noted. No accessory muscle use. No intercostal muscle retraction noted. CARDIAC: Regular rate, irregular rhythm. S1, S2. 2/6 systolic murmur noted left sternal border. ABDOMEN: Soft, nontender, bowel sounds x4 quadrants, no organomegaly, no palpable masses. SKIN: [place], warm, dry, no cyanosis, no peripheral edema. VASCULAR: +2 carotids bilateral, +2 radials bilateral, +2 dorsal pedal and posterior tibial pulses bilateral. DATA REVIEWED: Laboratories drawn on admission showing WBC of 5.57, hemoglobin of 11.4, hematocrit of 34.1, platelet count of 203. INR noted to be subtherapeutic at 1.68. Sodium 141, potassium 4.1, chloride 112, CO2 of 20, BUN 36, creatinine 1.6, glucose 167, calcium 9.3. Troponin 0.03, proBNP 11, 400. Studies: Electrocardiogram as mentioned above. Chest x-ray as mentioned above. Echocardiogram was done showing normal LV size, mild concentric LVH. EF estimated between 70% to 75% with no regional wall motion abnormalities. Diastolic dysfunction was present. LA was moderately to severely dilated. Percutaneous core valve in aortic position. There were 2 AI jets with a maximum peak gradient of 8 mmHg and a mean gradient of 4 mmHg. Mild-to- moderate AI, mild to moderate TR. RVSP of 44 mmHg. No pericardial effusion. ASSESSMENT/PLAN: 1. Diastolic heart failure: Patient reporting gradual onset of shortness of breath over the last 2 weeks. He has had no significant weight gain, but shows up with significant JVD, chest x-ray showing mild CHF with mild pleural effusions. Elevated BNP, Rales noted in bases bilateral on physical examination. At this time, we will admit him for IV diuresis and monitor him closely. Daily ins and outs. Daily weights. Initial order of IV Lasix ordered in the ER for 40 mg. 2. Episodes of lightheadedness: The patient has been noted to be orthostatic in the past. Will check orthostatic blood pressures upon arrival to the PCU. The patient was also noted at times to have heart rates drop down to 30 beats per minute in atrial fibrillation, concerning that may be potentially due to significant pauses due to his atrial fibrillation. Would like to decrease his beta-aida dosage of metoprolol, home dosage, to 37.5 mg p.o. b.i.d. 3. Chronic atrial fibrillation: He is currently rate controlled. As mentioned above, pauses noted. Will decrease metoprolol home dosage to 37.5 mg p.o. b.i.d. He is on systemic anticoagulation of warfarin. He is subtherapeutic. Will give him an additional dose of warfarin today, will monitor INR closely. 4. Coronary artery disease, recent cardiac catheterization showing non-flow limiting disease, mostly in left main and left anterior descending, done in August of this year. He is currently not on antiplatelet therapy due to being on full anticoagulation. He is also not on statin therapy due to history of liver transplant. Will continue to work on risk reduction with blood pressure management. 5. History of liver transplant: Will plan on getting a liver profile in the a.m., continue on home dose of Prograf. 6. Hypertension: Blood pressure appears fairly well-controlled on current dose of metoprolol and lisinopril. No changes to lisinopril dosage from home. Reduce metoprolol dosage as mentioned above. Continue to monitor, adjust as needed. 7. Hypothyroidism: Will resume patient's home Synthroid level. 8. History of gastrointestinal bleeds: Will continue patient on home dosage of Protonix. 9. Renal insufficiency: The patient's creatinine noted to be elevated today at 1.6, potentially due to cardiorenal due to heart failure. Will monitor closely with the diuretic therapy. 10. Code status: Patient reports he has a DNR 11. Deep venous thrombosis prophylaxis: Patient has been ordered GALI plasencia and he is on warfarin therapy. /[id number]/MODL MTDD
[2018-10-21] MEDS ORDERED: WARFARIN SODIUM 5 MG TAB PO ONE (17:00)
[2018-10-21] MEDS: TACROLIMUS 1 MG CAP PO SCH (20:33)
[2018-10-21] MEDS: PANTOPRAZOLE SODIUM 40 MG TAB PO SCH (20:33)
[2018-10-21] MEDS ORDERED: METOPROLOL TARTRATE 25 MG TAB PO SCH (21:00)
[2018-10-22 04:16] LABS: INR 2.02 (0.83-1.16); PROTIME(PATIENT) 22.9 SEC (12.0-15.0)
[2018-10-22] MEDS: LEVOTHYROXINE 88 MCG TAB PO SCH (06:29)
--- NOTE | 2018-10-22 07:33 | PDCARPN ---
Cardiology Progress Note Chief Complaint: SOB Assessment/Plan: Assessment: SOB diastolic HF AF Plan: 10/22/18 07:32 Patient much less SOB today One more day of IV lasix with KCL Check labs in AM Convert to lasix 40 mg po qd/10 meq KCL po qd on 10/23 Reduce lopressor dose Anticipate d/c on 10/23 with home meds and new addition of lasix/KCL Subjective: feeling better Reviewed/Discussed With: multidisciplinary team Time Spent with Patient: greater than 25 minutes Time Spent with Patient: Greater than 25 minutes spent on this patients care, greater than 50% of time spent counseling, educating, and coordinating care regarding the above mentioned plan. Objective: Vital Signs (8 Hrs) Temp Pulse Pulse Pulse Pulse Resp BP 10/22/18 04:00 36.3 C 71 74 73 62 15 133/75 H 10/21/18 23:29 36.4 C 66 16 116/55 L BP BP BP Pulse Ox 10/22/18 04:00 130/66 H 129/59 H 133/75 H 93 10/21/18 23:29 90 L Intake/Output (24 Hrs) 10/21/18 10/22/18 10/23/18 05:59 05:59 05:59 Intake Total 630 Output Total 1400 Balance -770 Intake: Oral (ml) 630 Output: Urine (ml) 1400 Urinal 1400 Other: Weight 62.1 kg Number of Voids Toilet 1 Urinal 1 Result Diagrams: 10/21/18 13:16 10/22/18 04:00 Cardiac Labs: Cardiac Lab Results (72 Hrs) 10/22/18 04:00 Troponin I 0.026 - Physical Exam Constitutional: no apparent distress Eyes: PERRL Ears, Nose, Mouth, Throat: moist mucous membranes Cardiovascular: systolic murmur, irregularly irregular Peripheral Pulses: 1+: femoral (R), femoral (L) Respiratory: no crackles Gastrointestinal: normoactive bowel sounds Genitourinary: no suprapubic tenderness Skin: no rashes Musculoskeletal: no muscular tenderness Neurologic: AAOx3 Psychiatric: cooperative ICD10 Worksheet Patient Problems: Problems Problem Status Onset Diastolic dysfunction Acute Dyspnea Acute Anemia due to GI blood loss Acute Upper GI bleed Acute Weakness Acute
[2018-10-22] MEDS ORDERED: FUROSEMIDE 40 MG/4 ML VIAL IVP SCH (09:00)
[2018-10-22] MEDS: PANTOPRAZOLE SODIUM 40 MG TAB PO SCH ×2 (09:34→20:35)
[2018-10-22] MEDS: METOPROLOL TARTRATE 25 MG TAB PO SCH ×2 (09:35→20:34)
[2018-10-22] MEDS: FLUDROCORTISONE ACETATE 0.1 MG TAB PO SCH (09:35)
[2018-10-22] MEDS: POTASSIUM CL 10 MEQ TAB PO SCH ×2 (09:35→20:35)
[2018-10-22] MEDS: CYANO/VITAMIN B12 1000 MCG TAB PO SCH (09:36)
[2018-10-22] MEDS: TACROLIMUS 1 MG CAP PO SCH ×2 (09:36→20:35)
[2018-10-22] MEDS: LISINOPRIL 10 MG TAB PO SCH (09:36)
[2018-10-22] MEDS: POLYETHYLENE GLYCOL 3350 17 GM PKT PO SCH (09:37)
[2018-10-22] MEDS: FUROSEMIDE 40 MG/4 ML VIAL IVP SCH (15:24)
--- NOTE | 2018-10-22 15:59 | ASMTCMCOM ---
CM Note CM Note Notes: CM reviewed pt's chart for d/c planning. Pt experienced SOB and fatigue following TAVR procedure on 10/11/2018. He has a hx of chronic AFIB, chronic renal failure, severe aortic stenosis and a liver transplant. Pt lives independently. He has a son that lives locally. PT is recommending HHC vs SNF, depending on progress. CM will follow progress for recommendations. D/C Plan: C PT/OT vs SNF Date Signed: 10/22/2018 03:59 PM Electronically Signed By:Hilda Olivares
[2018-10-22] MEDS ORDERED: WARFARIN SODIUM 7.5 MG TAB PO ONE (16:00)
[2018-10-22] MEDS: APIXABAN 2.5 MG TAB PO SCH (20:34)
[2018-10-23] MEDS: LEVOTHYROXINE 88 MCG TAB PO SCH (04:19)
[2018-10-23 05:07] LABS: INR 2.68 (0.83-1.16); PROTIME(PATIENT) 28.4 SEC (12.0-15.0)
[2018-10-23 08:05] VITALS: BP 150/81
[2018-10-23] MEDS: FUROSEMIDE 40 MG/4 ML VIAL IVP SCH ×2 (08:57→09:11)
[2018-10-23] MEDS: TACROLIMUS 1 MG CAP PO SCH (08:57)
[2018-10-23] MEDS: LISINOPRIL 10 MG TAB PO SCH ×2 (08:57→09:05)
[2018-10-23] MEDS: FLUDROCORTISONE ACETATE 0.1 MG TAB PO SCH (08:58)
[2018-10-23] MEDS: METOPROLOL TARTRATE 25 MG TAB PO SCH (08:58)
[2018-10-23] MEDS: CYANO/VITAMIN B12 1000 MCG TAB PO SCH (08:58)
[2018-10-23] MEDS: PANTOPRAZOLE SODIUM 40 MG TAB PO SCH (08:58)
[2018-10-23] MEDS: APIXABAN 2.5 MG TAB PO SCH (08:58)
[2018-10-23] MEDS: POTASSIUM CL 10 MEQ TAB PO SCH (08:59)
[2018-10-23] MEDS: POLYETHYLENE GLYCOL 3350 17 GM PKT PO SCH (08:59)
[2018-10-23] MEDS ORDERED: FUROSEMIDE 40 MG TAB PO SCH (09:15)
--- NOTE | 2018-10-23 10:14 | PDIAF ---
- Diagnosis Code Status: Do Not Resuscitate - Medication Management Discharge Medications: electronically signed and located in the Home Medication List. - Orders Services needed: Physical Therapy Diet Recommendation: cardiac -low fat low salt Additional Instructions: 1. Please monitor weight on a daily basis, notify [facility] if you gain more than 2 lb in a day or 5 lb in a week. 2. Low-sodium diet. 3. Follow-up in warfarin Clinic ([facility] location) on 10/27/2018 at 10:30 a.m.. 4. [facility] will call to make a follow-up appointment for you to be seen by Dr. Beasley next week. 5. Please have blood work drawn on October 27. - Follow Up Care Current Providers and Referrals: Alberto Beasley MD [Medical Doctor] - ([facility] will call to schedule a follow-up visit to be done next week with Dr. Beasley.) Michelle Lanier MD [Primary Care Provider] - As per Instructions
[2018-10-23] MEDS ORDERED: POTASSIUM CL 10 MEQ TAB PO ONE (10:30)
[2018-10-23] MEDS ORDERED: WARFARIN SODIUM 3 MG TAB PO SCH (10:30)
--- NOTE | 2018-10-23 12:45 | ASDISCHSUM ---
Discharge Information Plan Status:Home with Home Health Medically Cleared to Leave: Discharge Date: D/C Disposition:Home Health Service [facility] D/C Disposition: Projected Discharge Date:10/23/2018 11:00 AM Transportation at D/C:Family Discharge Delay Reason: Follow-Up Date:10/23/2018 11:00 AM Discharge Slot: Final Diagnosis: Placement Information Referral Type:*Home Health Care Services Referral ID:[id number] Provider Name:[facility] Address 1:[address] Address 2: City:[place] Selection Factors: State:[place] Patient Contact Information Contact Name:YELITZA Relationship: Address: Home Phone: Work Phone: City: [facility] Phone: [facility] Code: Email: Financial Information Financial Class:Medicare Advantage Plans Primary Plan Desc:[employer] GOLD MEDICARE Primary Plan Number:[id number] Secondary Plan Desc: Secondary Plan Number: Assessment Information LACE LACE Length of stay for Answers: 1 day current admission Comorbidities - select Answers: Coronary Artery Disease all that apply Mild liver or renal disease Other Notes: Liver transplant # of Emergency department Answers: 1-2 visits in the last 6 months Score: 7 Date Signed: 10/23/2018 12:45 PM Electronically Signed By:FAITH Gibbs [facility] Progress Note CM Note CM Note Notes: CM reviewed pt's chart for d/c planning. Pt experienced SOB and fatigue following TAVR procedure on 10/11/2018. He has a hx of chronic AFIB, chronic renal failure, severe aortic stenosis and a liver transplant. Pt lives independently. He has a son that lives locally. PT is recommending HHC vs SNF, depending on progress. CM will follow progress for recommendations. D/C Plan: HHC PT/OT vs SNF Date Signed: 10/22/2018 03:59 PM Electronically Signed By:Hilda Olivares Case Management Discharge Plan Note Case Management Discharge Discharge Order Complete? Answers: Yes Patient to Obtain Answers: via Family Medications Transportation Arranged Answers: Family/Friends Faxed Final Orders Answers: Yes Agency/Facility Transfer Answers: Yes Report Printed & Faxed to Receiving Agency Family Notified Answers: Yes Discharge Comments Notes: CM discussed discharge with pts family and pt. Pt is going to stay with son in [place]. CM arranged home PT for pt with [facility]. Pt is going to stay with son Jean-Paul at [address] [place] [address] in [place], [facility]. CM submit discharge ppwk. No other CM needs identified. Family to transport. Plan: home with [facility]. Date Signed: 10/23/2018 12:44 PM Electronically Signed By:FAITH Gibbs Intervention Information
--- NOTE | 2018-10-23 13:19 | GDS ---
ADMISSION DIAGNOSES: 1. Shortness of breath and fatigue. 2. Known history of valvular heart disease, two weeks status post transcatheter aortic valve replace ment implantation. 3. Chronic atrial fibrillation with episodes of bradycardia. 4. Coronary artery disease, non-flow limiting, based off cardiac catheterization done in August of 2018. 5. Hypertension. 6. History of liver transplant. 7. Hypothyroidism. 8. History of gastrointestinal bleed. 9. Renal insufficiency. DISCHARGE DIAGNOSES: 1. Diastolic heart failure. 2. Chronic atrial fibrillation. 3. Valvular heart disease; noted history of aortic stenosis status post transcatheter aortic valve r eplacement. 4. Hypertension. 5. History of liver transplant. 6. Hypothyroidism. 7. Renal insufficiency. 8. History of gastrointestinal bleed. PROCEDURES PERFORMED DURING HOSPITALIZATION: 1. Electrocardiogram. 2. Chest x-ray. 3. Echocardiogram. 4. Ultrasound of femoral arteries to evaluate for possible pseudoaneurysm. 5. Head CT. BRIEF HISTORY: Please see H and P. Briefly, the patient is an 82-year-old male. 2 weeks ago, he di d undergo TAVR procedure. Patient reporting over previously 1 week of developing increased shortness of breath. Patient's son also reporting episodes of the patient reporting episode of lightheadednes s and occasional confusion. The patient was brought to the emergency department for further evaluati on. HOSPITAL COURSE: Upon arrival to the emergency department, laboratory studies were drawn, showing a significant elevation of BNP of 11,400. Chest x-ray did show mild CHF. Patient also underwent echoc ardiogram, showing normal LV size, mild concentric LVH, EF of 70% to 75% with no regional wall motion abnormalities. Diastolic dysfunction was noted. LA was moderately to severely dilated. Patient is with a TAVR valve in position of aorta, with 2 jets of AI. Aortic max peak gradient was 8 mmHg. Me an gradient was 4 mmHg. Lhrc-xl-iprhilpm AI, fgbu-be-ezcsrkto TR, RVSP of 44 mmHg, no pericardial ef fusion. Electrocardiogram done in the emergency department noting atrial fibrillation with LVH but n o significant ST changes suggesting of ischemia. It was noted that, at times, the patient's heart ra te was dropping to 30 BPM. Patient was admitted to PCU. There, he was started on IV diuretics of La six, which he had good response to. The patient did report pain at groin sites, access site for his previous TAVR procedure. Ultrasounds were done of both groins to assure no pseudoaneurysm. Study hall d shown negative for pseudoaneurysm, normal flow. Patient and son did state patient had episodes of confusion. He was not noted to have an elevated white blood cell count. UA was done, which was nega tive. He was noted to come in with subtherapeutic INR. With his history of chronic atrial fibrillat ion, there was concern about possible thrombus release. He did undergo CT of the head, which overall showed moderate amount of volume loss and age-related periventricular white matter disease , no intracranial hemorrhages or mass, no evidence of acute indistinction of luu matter to suggest o f acute or subacute stroke on a large scale. At this time, the patient has been transitioned to oral diuretics. His weight is down approximately 1.5 kilos from admission. He reports no further episod es of shortness of breath. He has been up and walking the unit without difficulty. His confusion hall s cleared up. PHYSICAL EXAMINATION: Done today: GENERAL APPEARANCE: Thin, elderly male. He is alert a nd orientated to person, place, time, and situation. Appears to be under no acute distress. CURRENT VITAL SIGNS: Blood pressure of 131/62, heart rate of 76, respirations 20, saturating 93% on room ai r, temperature of 36.8 degrees Celsius. HEENT: Head is normocephalic. Lips and tongue are pink and moist with no signs of cyanosis. Conjunctivae pink. NECK: Trachea is midline, +2 carotid pulses b ilateral. No auscultated bruits. 4 cm of JV elevation at 45-degree angle. LUNGS: Clear to auscult ation. No rhonchi, rales or wheezes. No accessory muscle use. CARDIAC: Irregular rate, irregular rhythm. S1, S2. 2/6 systolic murmur noted over upper chest wall. ABDOMEN: Soft, nontender, bowel sounds x4 quadrants, no organomegaly, no palpable masses. SKIN: [place], warm, dry, no cyanosis, no cl ubbing, no peripheral edema. LABORATORY STUDIES: On admission showing WBC of 5.57, hemoglobin 11.4, hematocrit of 34.1, and plate let count of 147. Today's laboratory studies showing INR of 2.68, sodium 141, potassium 3.5, chlorid e , CO2 25, BUN 33, creatinine 1.5, glucose 101, calcium 8.5, magnesium 1.8. The patient w as noted to have 2 negative troponin levels during hospitalization. PROCEDURES: Electrocardiogram, chest x-ray, femoral ultrasounds, echocardiogram, and head CT as ment ioned above. DISCHARGE DISPOSITION: Patient will be discharged home to stay with his son. He has been scheduled to have home PT. He is under no significant activity restrictions. DISCHARGE MEDICATIONS: Please see discharge medication reconciliation sheet. Note that the patient' s daily warfarin dosage has been increased to 3 mg p.o. daily. He is now therapeutic. He has been s cheduled for a followup visit with [facility] later next week. Patient also has been started on Lasi x at 40 mg p.o. daily with potassium chloride 10 mEq p.o. daily. DISCHARGE INSTRUCTIONS: Diastolic heart failure discharge instructions. Went over with the patient including monitoring weight on a daily basis, and notify our office if gains more than 2 pounds in a day or 5 pounds in a week. He is to remain on a low-sodium diet and medication compliance. Patient has been scheduled for a followup appointment with [facility] on Thursday, October 27. He would al so have a repeated basic metabolic panel done at that time. He has a followup appointment with Dr. Asher cavanaugh set for October 28. At the time of discharge, both son and patient verbalize understanding, and as for his episodes of confusion, CT did not show any acute process. Dr. Beasley has recommended patient have a followup visit with Neurology as an outpatient. Patient and son told if any problems or concerns come up postdischarge, they are to notify our office or return to the hospital. TOTAL TIME SPENT ON DISCHARGE: Greater than 30 minutes. /[id number]/MODL
== END 2018-10-23 14:40 | disposition home health service (06) ==
LOC: F2W 15:40
PROVIDERS: ADMIT Internal Medicine Interventional Cardiology; ATTEND Internal Medicine Cardiovascular Disease
DX: I50.30 Unspecified diastolic (congestive) heart failure (principal); I48.2 Chronic atrial fibrillation; R53.83 Other fatigue; I25.10 Atherosclerotic heart disease of native coronary artery without angina pectoris; I35.1 Nonrheumatic aortic (valve) insufficiency; I12.9 Hypertensive chronic kidney disease with stage 1 through stage 4 chronic kidney disease, or unspecified chronic kidney disease; N18.9 Chronic kidney disease, unspecified; E03.9 Hypothyroidism, unspecified; Z79.01 Long term (current) use of anticoagulants; Z87.19 Personal history of other diseases of the digestive system; Z98.890 Other specified postprocedural states; Z95.2 Presence of prosthetic heart valve; Z94.4 Liver transplant status; Z66 Do not resuscitate
CPT/HCPCS: 70450; 71045; 93005; 93306; 93990; 96374; 96376; 97116; 97161; 99285; G0378; G8978; G8979; J1940; J7507; 84484-ER

== ENCOUNTER 2018-12-19 17:57 | Emergency (ER) | payer OTHER ==
--- NOTE | 2018-12-19 18:07 | EDPHY ---
H & P Stated Complaint: "Anxiety/panic attacks" "more forgetful over past 2 days or so" Time Seen by Provider: 12/19/18 18:06 HPI/ROS: HPI CHIEF COMPLAINT: Panic attack, confusion HISTORY OF PRESENT ILLNESS: This is a very pleasant 83-year-old male multiple chronic medical problems including AFib, coronary disease, hypertension, history of liver transplant and a recent history of a TAVR for aortic stenosis, presents emergency room by private vehicle with his son for what is described his anxiety and panic attacks recently. The patient states he has been having trouble with his finances has been having great deal of anxiety about this. His son reports that they noticed over the last 3 weeks he has had some increasing confusion after his TAVR. State he seems to be more forgetful. Patient arrived to the emergency room answers my questions appropriately and has no focal complaints. Denies any chest pain or shortness of breath. Denies headache. Denies focal numbness or tingling or weakness. He does endorse anxiety. Patient denies Chest pain, denies sob, denies hall, nausea/vomiting, denies dizziness. Main complaint is that he is distressed about his financial. Past Medical History: Significant medical history for AFib, coronary artery disease, hypertension, GI bleed, liver transplant, TAVR Past Surgical History: Aortic stenosis TAVR, liver transplant Social History: Denies drugs alcohol tobacco. Resides at [facility]. Family History: Noncontributory ROS REVIEW OF SYSTEMS: 10 Systems were reviewed and negative with the exception of the elements mentioned in the history of present illness. Exam Constitutional elderly, frail, nontoxic triage nursing summary reviewed, vital signs reviewed, awake/alert. Vital signs stable. Eyes normal conjunctivae and sclera, EOMI, PERRLA. HENT normal inspection, atraumatic, moist mucus membranes, no epistaxis, neck supple/ no meningismus, no raccoon eyes. Respiratory clear to auscultation bilaterally, normal breath sounds, no respiratory distress, no wheezing. Cardiovascular rate normal, regular rhythm, no murmur, no edema, distal pulses normal. Gastrointestinal soft, non-tender, no rebound, no guarding, normal bowel sounds, no distension, no pulsatile mass. Genitourinary no CVA tenderness. Musculoskeletal been appearing, no midline vertebral tenderness, full range of motion, no calf swelling, no tenderness of extremities, no meningismus, good pulses, neurovascularly intact. Skin pink, warm, & dry, no rash, skin atraumatic. Neurologic awake, alert and oriented x 3, AAOx3, moves all 4 extremities equally, motor intact, sensory intact, CN II-XII intact, normal cerebellar, normal vision, normal speech. Psychiatric normal mood/affect. Heme/Lymph/Immune no lymphadenopathy. Differential Diagnosis: Includes but is not limited to in a particular order dehydration, electrolyte disturbance, intracranial bleed, pneumonia Medical Decision Making: Plan for this patient IV establishment, check basic blood work, urinalysis, CT scan head without contrast, chest x-ray, point care troponin, EKG and re-evaluate. Re-evaluation: EKG interpretation by me on record in [facility] system. Impression time of EKG 1832, AFib rate of 63, LVH present. T-wave inversion lead 3. Otherwise no signs of acute ischemia. When I compare this EKG to his old EKG 10/21/[address] scan head without contrast negative for acute bleed. Please see full report for other nonacute findings at this time. I did discussed with the son at bedside that there is some mild atrophy, additionally some microvascular changes and I do recommend follow-up with Neurology and outpatient MRI. Discussed CT results with the son and patient at bedside. Patient's labs reviewed. He does not have a elevated white blood cell count, his electrolytes are appropriate. His BNP for heart failure is elevated however much down from his previous visit. He has no signs of heart failure on exam. He is not short of breath he does not have any chest pain, no significant edema. Chest x-ray is clear and stable. Troponin noted be negative. EKG is stable from previous EKGs without any signs of ischemia. The patient did not have any chest pain or shortness of breath. He has otherwise felt well. He presented to the emergency room for anxiety and concern for confusion. Here in the emergency room is alert and oriented, in no acute distress. His son is at bedside. His workup was reviewed with the son as well as the patient and they are comfortable going home. The patient is eager for discharge out of the emergency room. He denies any complaints at this time. He is neurologically intact. He has a Neurology appointment for some anxiety confusion that he has been dealing with over the past 3 weeks this is scheduled for 2 weeks from now. I do recommend he keep this appointment follow-up. Also follow up with her primary care doctor I also discussed return precautions they understand if he has further anxiety or panic attacks, increasing confusion, or not feeling well or not doing well the need to return emergency room they are comfortable this plan. Additionally they are comfortable discharge home. BUN and creatinine slightly elevated in the pre renal dehydration. The patient did receive IV fluids here 500 cc IV. Encouraged him to stay hydrated. Watch his fluid balance. Return emergency room worsening symptoms. Son at bedside feels comfortable taking him home. Patient feels comfortable going home. Return precautions discussed. Source: Patient - Medical/Surgical History Hx Asthma: No Hx Chronic Respiratory Disease: No Hx Diabetes: No Hx Cardiac Disease: No Hx Renal Disease: No Hx Cirrhosis: No Hx Alcoholism: No Hx HIV/AIDS: No Hx Splenectomy or Spleen Trauma: No Other PMH: PSH: 2002 liver transplant; prostitectomy; T&A; Appy; bhavesh;. PMH: htn, TVAR - Social History Smoking Status: Never smoked Constitutional: Initial Vital Signs Temperature (C) 36.7 C 12/19/18 18:02 Heart Rate 89 12/19/18 18:02 Respiratory Rate 18 12/19/18 18:02 Blood Pressure 144/66 H 12/19/18 18:02 O2 Sat (%) 96 12/19/18 18:02 O2 Delivery Mode Room Air Allergies/Adverse Reactions: No Known Allergies Allergy (Verified 10/21/18 12:54) Home Medications: Medication Instructions Recorded Cyanocobalamin [Vitamin B12 (*)] 1,000 mcg PO DAILY 12/01/16 FLUDROCORTISONE ACETATE 0.1 mg PO DAILY 12/01/16 Levothyroxine [Synthroid 88 mcg 88 mcg PO DAILY06 12/01/16 (*)] Tacrolimus [Prograf] 1 mg PO BID 12/01/16 Pantoprazole Sodium [Protonix 40mg 40 mg PO BID #60 tab 12/03/16 (*)] Carbamide Peroxide [Debrox Ear 5 drop EACHEAR BID PRN 09/15/18 drops (*)] Lisinopril [Zestril 10 mg (*)] 10 mg PO DAILY 09/15/18 Polyethylene Glycol 3350 [Miralax 17 gm PO DAILY 09/15/18 17 gm (*)] amLODIPine BESYLATE [Norvasc 10 mg 10 mg PO DAILY 09/15/18 (*)] Acetaminophen [Tylenol 325mg (*)] 650 mg PO Q4HRS PRN tab 10/23/18 Furosemide [Lasix 40 MG (*)] 40 mg PO DAILY #30 tab 10/23/18 Metoprolol Tartrate [Lopressor 25 25 mg PO BID #60 tab 10/23/18 mg (*)] Potassium Cl [Klor-Con] 10 meq PO DAILY #30 tab 10/23/18 Warfarin Sodium [Coumadin 3MG (*)] 3 mg PO DAILY AT 4PM #30 tab 10/23/18 Medical Decision Making - Diagnostics Imaging Results: Imaging Impressions Chest X-Ray 12/19/18 18:24 Impression: 1. Stable mild cardiomegaly. 2. Fibrotic changes at the lung bases. Head CT 12/19/18 18:24 Impression: 1. Stable moderate atrophy. 2. No hemorrhage, mass effect, or definite acute peripheral infarct. 3. Stable mild nonspecific hypodensities in the white matter of bilateral cerebral hemispheres. Differential diagnosis includes microvascular ischemic disease, post-infectious/post-inflammatory sequela, atypical demyelinating disease, or migraine-related sequela. Small white matter lacunar infarcts may also have this appearance. If symptoms worsen, additional imaging may be necessary. Findings discussed with Be Landry MD at 20:05 hour, 12/19/2018. - Data Points Laboratory Results: Laboratory Results 12/19/18 18:32 12/19/18 18:32 12/19/18 12/19/18 12/19/18 19:40 18:37 18:32 WBC RBC Hgb Hct MCV MCH MCHC RDW Plt Count MPV Neut % (Auto) Lymph % (Auto) [place] % (Auto) Eos % (Auto) Baso % (Auto) Nucleat RBC Rel Count Absolute Neuts (auto) Absolute Lymphs (auto) Absolute Monos (auto) Absolute Eos (auto) Absolute Basos (auto) Absolute Nucleated RBC Immature Gran % Immature Gran # PT INR APTT Sodium 141 mEq/L mEq/L (135-145) Potassium 4.6 mEq/L mEq/L (3.5-5.2) Chloride 113 mEq/L H mEq/L (97-110) Carbon Dioxide 21 mEq/l L mEq/l (22-31) Anion Gap 7 mEq/L mEq/L (6-14) BUN 32 mg/dL H mg/dL (7-23) Creatinine 1.4 mg/dL H mg/dL (0.7-1.3) Estimated GFR 48 Glucose 105 mg/dL H mg/dL (70-100) Calcium 9.0 mg/dL mg/dL (8.5-10.4) Magnesium 2.1 mg/dL mg/dL (1.6-2.3) POC Troponin I 0.02 ng/mL ng/mL (0.00-0.08) NT-Pro-B Natriuret Pep 6440 pg/mL H pg/mL (0-450) Urine Color PALE YELLOW Urine Appearance CLEAR Urine pH 5.0 (5.0-7.5) Ur Specific [place] 1.008 (1.002-1.030) Urine Protein NEGATIVE (NEGATIVE) Urine Ketones NEGATIVE (NEGATIVE) Urine Blood 1+ H (NEGATIVE) Urine Nitrate NEGATIVE (NEGATIVE) Urine Bilirubin NEGATIVE (NEGATIVE) Urine Urobilinogen NEGATIVE EU EU (0.2-1.0) Ur Leukocyte Esterase NEGATIVE (NEGATIVE) Urine RBC 1-3 /hpf /hpf (0-3) Urine WBC 1-3 /hpf /hpf (0-3) Ur Epithelial Cells TRACE /lpf /lpf (NONE-1+) Urine Bacteria TRACE /hpf H /hpf (NONE SEEN) Hyaline Casts 1-5 /lpf /lpf (0-1) Urine Mucus TRACE /lpf /lpf (NONE-1+) Urine Glucose NEGATIVE (NEGATIVE) 12/19/18 12/19/18 18:32 18:32 WBC 4.78 10^3/uL 10^3/uL (3.80-9.50) RBC 4.01 10^6/uL L 10^6/uL (4.40-6.38) Hgb 11.1 g/dL L g/dL (13.7-17.5) Hct 34.2 % L % (40.0-51.0) MCV 85.3 fL fL (81.5-99.8) MCH 27.7 pg L pg (27.9-34.1) MCHC 32.5 g/dL g/dL (32.4-36.7) RDW 14.1 % % (11.5-15.2) Plt Count 205 10^3/uL 10^3/uL (150-400) MPV 9.3 fL fL (8.7-11.7) Neut % (Auto) 60.5 % % (39.3-74.2) Lymph % (Auto) 20.7 % % (15.0-45.0) [place] % (Auto) 9.8 % % (4.5-13.0) Eos % (Auto) 7.3 % % (0.6-7.6) Baso % (Auto) 1.3 % % (0.3-1.7) Nucleat RBC Rel Count 0.0 % % (0.0-0.2) Absolute Neuts (auto) 2.89 10^3/uL 10^3/uL (1.70-6.50) Absolute Lymphs (auto) 0.99 10^3/uL L 10^3/uL (1.00-3.00) Absolute Monos (auto) 0.47 10^3/uL 10^3/uL (0.30-0.80) Absolute Eos (auto) 0.35 10^3/uL 10^3/uL (0.03-0.40) Absolute Basos (auto) 0.06 10^3/uL 10^3/uL (0.02-0.10) Absolute Nucleated RBC 0.00 10^3/uL 10^3/uL (0-0.01) Immature Gran % 0.4 % % (0.0-1.1) Immature Gran # 0.02 10^3/uL 10^3/uL (0.00-0.10) PT 15.6 SEC H SEC (12.0-15.0) INR 1.22 H (0.83-1.16) APTT 32.1 SEC SEC (23.0-38.0) Sodium Potassium Chloride Carbon Dioxide Anion Gap BUN Creatinine Estimated GFR Glucose Calcium Magnesium POC Troponin I NT-Pro-B Natriuret Pep Urine Color Urine Appearance Urine pH Ur Specific [place] Urine Protein Urine Ketones Urine Blood Urine Nitrate Urine Bilirubin Urine Urobilinogen Ur Leukocyte Esterase Urine RBC Urine WBC Ur Epithelial Cells Urine Bacteria Hyaline Casts Urine Mucus Urine Glucose Medications Given: Discontinued Medications Sodium Chloride (Ns) 500 mls @ 1,000 mls/hr IV EDNOW ONE PRN Reason: Protocol Stop: 12/19/18 18:53 Last Admin: 12/19/18 18:39 Dose: 500 mls Point of Care Test Results: Chemistry 12/19/18 18:37 POC Troponin I 0.02 ng/mL ng/mL (0.00-0.08) Departure - Departure Disposition: Home, Routine, Self-Care Clinical Impression: Anxiety, Dehydration Condition: Good Instructions: Dehydration (ED), Anxiety (ED) Additional Instructions: 1. Please follow up with your primary care doctor 2. Please continue your appointment with the neurologist 3. Return to the emergency room if he develops worsening symptoms questions or concerns. 4. You were slightly also dehydrated here in the emergency room. Referrals: Michelle Lanier MD [Primary Care Provider] - As per Instructions
[2018-12-19] MEDS ORDERED: NS 500 ML IV ONE (18:24)
[2018-12-19 18:45] LABS: PLATELET COUNT 205 10^3/uL (150-400)
[2018-12-19 18:53] LABS: INR 1.22 (0.83-1.16); PROTIME(PATIENT) 15.6 SEC (12.0-15.0)
--- NOTE | 2018-12-19 19:52 | CPEKG ---
Test Reason : OPEN Blood Pressure : / mmHG Vent. Rate : 063 BPM Atrial Rate : 089 BPM P-R Int : 230 ms QRS Dur : 088 ms QT Int : 400 ms P-R-T Axes : 000 010 -17 degrees QTc Int : 410 ms Atrial fibrillation Left ventricular hypertrophy Borderline T abnormalities, inferior leads Confirmed by Be Landry ([id number]) on 12/19/2018 7:51:28 PM Referred By: Be Landry Confirmed By:Be Landry
[2018-12-19 21:32] VITALS: BP 163/63
== END 2018-12-19 21:28 | disposition home or self-care (01) ==
DX: F41.0 Panic disorder [episodic paroxysmal anxiety] (principal); E86.0 Dehydration
CPT/HCPCS: 84484-ER

== ENCOUNTER → 2019-01-06 | Outpatient (CLI) | payer OTHER ==
[~2019-01-06] MED LIST: GADOBUTROL 10 ML VIAL IVP ONE
== END ==
LOC: FIMAGING 06:23
PROVIDERS: ATTEND Physician Assistant Medical
DX: I38 Endocarditis, valve unspecified (principal); M54.9 Dorsalgia, unspecified; R41.3 Other amnesia
CPT/HCPCS: 70553; A9585; 82565-PO

== ENCOUNTER 2019-02-10 10:13 | Emergency (ER) | payer OTHER ==
[2019-02-10 11:48] LABS: PLATELET COUNT 157 10^3/uL (150-400)
--- NOTE | 2019-02-10 12:20 | EDPHY ---
H & P Stated Complaint: weakness, balance issues, weight loss Time Seen by Provider: 02/10/19 11:08 HPI/ROS: CHIEF COMPLAINT: Unsteady gait, anxiety HISTORY OF PRESENT ILLNESS: 83-year-old male with atrial fibrillation and liver transplant presents with unsteady gait and confusion. He underwent a TAVR procedure 2 months ago. Onset of mild confusion and unsteady gait immediately after the procedure. MRI of the brain was reportedly unremarkable. He continues to feel unstable with walking, has not fallen in the last month. Uses a cane to ambulate. Today he developed a panicky feeling and called his son. On his son's arrival, the patient was anxious, which is not typical of him. There were no other new symptoms and the anxiety has resolved. He has felt depressed since the of his . Not eating or drinking as much as usual. Approximately 20 lb weight loss in the past few months. REVIEW OF SYSTEMS: complete 10 point ROS reviewed and is negative except for the noted elements in the HPI Source: Patient - Personal History Current Tetanus/Diphtheria Vaccine: Yes Current Tetanus Diphtheria and Acellular Pertussis (TDAP): Yes - Medical/Surgical History Hx Asthma: No Hx Chronic Respiratory Disease: No Hx Diabetes: No Hx Cardiac Disease: Yes Hx Renal Disease: No Hx Cirrhosis: No Hx Alcoholism: No Hx HIV/AIDS: No Hx Splenectomy or Spleen Trauma: No Other PMH: PSH: 2002 liver transplant; prostitectomy; T&A; Appy; bhavesh;. PMH: htn, TAVR - Social History Smoking Status: Never smoked Alcohol Use: Sober Drug Use: None Additional Social History: Lives at [facility] - Physical Exam Exam: General Appearance: Alert, pleasant and very talkative Eyes: Pupils equal and round, no conjunctival pallor or injection ENT, Mouth: Mucous membranes moist Neck: Normal inspection Respiratory: Lungs are clear to auscultation Cardiovascular: Irregularly irregular rate and rhythm Gastrointestinal: Abdomen is soft and nontender Neurological: A&O, motor 5/5, sensory grossly intact Skin: Warm and dry Extremities: Normal inspection Psychiatric: Mood and affect normal Constitutional: Initial Vital Signs Temperature (C) 36.7 C 02/10/19 10:19 Heart Rate 75 02/10/19 10:19 Respiratory Rate 16 02/10/19 10:19 Blood Pressure 104/58 L 02/10/19 10:19 O2 Sat (%) 96 02/10/19 10:19 O2 Delivery Mode Room Air Allergies/Adverse Reactions: No Known Allergies Allergy (Verified 02/10/19 10:18) Home Medications: Medication Instructions Recorded Cyanocobalamin [Vitamin B12 (*)] 1,000 mcg PO DAILY 12/01/16 FLUDROCORTISONE ACETATE 0.1 mg PO DAILY 12/01/16 Levothyroxine [Synthroid 88 mcg 88 mcg PO DAILY06 12/01/16 (*)] Tacrolimus [Prograf] 1 mg PO BID 12/01/16 Pantoprazole Sodium [Protonix 40mg 40 mg PO BID #60 tab 12/03/16 (*)] Carbamide Peroxide [Debrox Ear 5 drop EACHEAR BID PRN 09/15/18 drops (*)] Lisinopril [Zestril 10 mg (*)] 10 mg PO DAILY 09/15/18 Polyethylene Glycol 3350 [Miralax 17 gm PO DAILY 09/15/18 17 gm (*)] amLODIPine BESYLATE [Norvasc 10 mg 10 mg PO DAILY 09/15/18 (*)] Acetaminophen [Tylenol 325mg (*)] 650 mg PO Q4HRS PRN tab 10/23/18 Furosemide [Lasix 40 MG (*)] 40 mg PO DAILY #30 tab 10/23/18 Metoprolol Tartrate [Lopressor 25 25 mg PO BID #60 tab 10/23/18 mg (*)] Potassium Cl [Klor-Con] 10 meq PO DAILY #30 tab 10/23/18 Warfarin Sodium [Coumadin 3MG (*)] 3 mg PO DAILY AT 4PM #30 tab 10/23/18 Medical Decision Making - Diagnostics EKG Interpretation: EKG interpreted by me reveals atrial fibrillation, rate 75, LVH. Interpretation : Abnormal EKG ED Course/Re-evaluation: This patient presents with a 2 month history of unsteady gait, confusion and weight loss. He certainly has element of depression, with recent of his . He denies suicidal ideation. The only new symptom today is a panicky feeling, which has now resolved. On physical exam, he is not ill appearing and he is afebrile. History of liver transplant, fortunately no evidence of infection. Old medical record reviewed and the brain MRI and December 2018 was unremarkable. Discussion with the patient and the son, option for admission for physical therapy and occupational therapy. They decline admission. The patient is already undergoing physical therapy at home. Will obtain labs and EKG. Will also have the patient walk to ensure that ambulate chin is at baseline. Patient is able to walk with a steady gait, at his baseline according to the patient and his son. Will discharge the patient home. Strongly encouraged further outpatient evaluation, including evaluation for depression. Will continue physical therapy for ongoing gait disturbance. Warning signs discussed. Differential Diagnosis: Altered mental status including but not limited to hypoglycemia, infectious process, electrolyte abnormality, head injury, CVA, and intoxicants. - Data Points Laboratory Results: Laboratory Results 02/10/19 11:32 02/10/19 11:32 02/10/19 02/10/19 02/10/19 12:51 11:50 11:32 WBC RBC Hgb Hct MCV MCH MCHC RDW Plt Count MPV Neut % (Auto) Lymph % (Auto) [place] % (Auto) Eos % (Auto) Baso % (Auto) Nucleat RBC Rel Count Absolute Neuts (auto) Absolute Lymphs (auto) Absolute Monos (auto) Absolute Eos (auto) Absolute Basos (auto) Absolute Nucleated RBC Immature Gran % Immature Gran # Sodium 142 mEq/L mEq/L (135-145) Potassium 3.9 mEq/L mEq/L (3.5-5.2) Chloride 110 mEq/L mEq/L (97-110) Carbon Dioxide 24 mEq/l mEq/l (22-31) Anion Gap 8 mEq/L mEq/L (6-14) BUN 23 mg/dL mg/dL (7-23) Creatinine 1.1 mg/dL mg/dL (0.7-1.3) Estimated GFR > 60 Glucose 110 mg/dL H mg/dL (70-100) Calcium 9.5 mg/dL mg/dL (8.5-10.4) Total Bilirubin 0.8 mg/dL mg/dL (0.1-1.4) Conjugated Bilirubin 0.4 mg/dL mg/dL (0.0-0.5) Unconjugated Bilirubin 0.4 mg/dL mg/dL (0.0-1.1) AST 40 IU/L IU/L (17-59) ALT 45 IU/L IU/L (21-72) Alkaline Phosphatase 162 IU/L H IU/L (38-126) POC Troponin I 0.00 ng/mL ng/mL (0.00-0.08) Total Protein 7.0 g/dL g/dL (6.3-8.2) Albumin 3.9 g/dL g/dL (3.5-5.0) Lipase 23 IU/L IU/L (23-300) Urine Color YELLOW Urine Appearance HAZY Urine pH 5.0 (5.0-7.5) Ur Specific [place] 1.018 (1.002-1.030) Urine Protein 3+ H (NEGATIVE) Urine Ketones NEGATIVE (NEGATIVE) Urine Blood 2+ H (NEGATIVE) Urine Nitrate NEGATIVE (NEGATIVE) Urine Bilirubin NEGATIVE (NEGATIVE) Urine Urobilinogen NEGATIVE EU EU (0.2-1.0) Ur Leukocyte Esterase NEGATIVE (NEGATIVE) Urine RBC 3-5 /hpf H /hpf (0-3) Urine WBC 1-3 /hpf /hpf (0-3) Ur Epithelial Cells NONE SEEN /lpf /lpf (NONE-1+) Hyaline Casts 15-25 /lpf H /lpf (0-1) Granular Casts 5-15 /lpf /lpf (0-1) Urine Mucus TRACE /lpf /lpf (NONE-1+) Urine Glucose NEGATIVE (NEGATIVE) 02/10/19 11:32 WBC 5.00 10^3/uL 10^3/uL (3.80-9.50) RBC 4.50 10^6/uL 10^6/uL (4.40-6.38) Hgb 12.4 g/dL L g/dL (13.7-17.5) Hct 37.5 % L % (40.0-51.0) MCV 83.3 fL fL (81.5-99.8) MCH 27.6 pg L pg (27.9-34.1) MCHC 33.1 g/dL g/dL (32.4-36.7) RDW 15.1 % % (11.5-15.2) Plt Count 157 10^3/uL 10^3/uL (150-400) MPV 9.9 fL fL (8.7-11.7) Neut % (Auto) 62.8 % % (39.3-74.2) Lymph % (Auto) 23.2 % % (15.0-45.0) [place] % (Auto) 9.0 % % (4.5-13.0) Eos % (Auto) 3.0 % % (0.6-7.6) Baso % (Auto) 1.2 % % (0.3-1.7) Nucleat RBC Rel Count 0.0 % % (0.0-0.2) Absolute Neuts (auto) 3.14 10^3/uL 10^3/uL (1.70-6.50) Absolute Lymphs (auto) 1.16 10^3/uL 10^3/uL (1.00-3.00) Absolute Monos (auto) 0.45 10^3/uL 10^3/uL (0.30-0.80) Absolute Eos (auto) 0.15 10^3/uL 10^3/uL (0.03-0.40) Absolute Basos (auto) 0.06 10^3/uL 10^3/uL (0.02-0.10) Absolute Nucleated RBC 0.00 10^3/uL 10^3/uL (0-0.01) Immature Gran % 0.8 % % (0.0-1.1) Immature Gran # 0.04 10^3/uL 10^3/uL (0.00-0.10) Sodium Potassium Chloride Carbon Dioxide Anion Gap BUN Creatinine Estimated GFR Glucose Calcium Total Bilirubin Conjugated Bilirubin Unconjugated Bilirubin AST ALT Alkaline Phosphatase POC Troponin I Total Protein Albumin Lipase Urine Color Urine Appearance Urine pH Ur Specific [place] Urine Protein Urine Ketones Urine Blood Urine Nitrate Urine Bilirubin Urine Urobilinogen Ur Leukocyte Esterase Urine RBC Urine WBC Ur Epithelial Cells Hyaline Casts Granular Casts Urine Mucus Urine Glucose Point of Care Test Results: Chemistry 02/10/19 12:51 POC Troponin I 0.00 ng/mL ng/mL (0.00-0.08) Departure - Departure Disposition: Home, Routine, Self-Care Clinical Impression: Unsteady gait, Depression Condition: Good Instructions: Depression (ED), Fall Prevention for Older Adults (ED) Referrals: Michelle Lanier MD [Primary Care Provider] - 2-3 days without fail
[2019-02-10 13:30] VITALS: BP 151/70
--- NOTE | 2019-02-10 14:52 | CPEKG ---
Test Reason : OPEN Blood Pressure : / mmHG Vent. Rate : 075 BPM Atrial Rate : 000 BPM P-R Int : 170 ms QRS Dur : 095 ms QT Int : 451 ms P-R-T Axes : 000 -06 -27 degrees QTc Int : 504 ms Atrial fibrillation Probable left ventricular hypertrophy Anterior Q waves, possibly due to LVH Borderline T abnormalities, inferior leads Prolonged QT interval Confirmed by Olga Lidia Elmore ([id number]) on 02/10/2019 2:52:02 PM Referred By: Olga Lidia Elmore Confirmed By:Olga Lidia Elmore
== END 2019-02-10 13:30 | disposition home or self-care (01) ==
DX: R26.81 Unsteadiness on feet (principal); F32.9 Major depressive disorder, single episode, unspecified; Z94.4 Liver transplant status; Z86.79 Personal history of other diseases of the circulatory system
CPT/HCPCS: 84484-ER